=== PATIENT | female | born 1965 | race Caucasian/White ===

== ENCOUNTER → 2016-11-06 | Outpatient (CLI) | payer MEDICARE, OTHER, SELFPAY ==
[2016-11-06 16:20] LABS: CHLORIDE,CL 102 mmol/L (98-115); SODIUM,NA 140 mmol/L (136-145)
== END ==
LOC: KA.OC 15:35
PROVIDERS: ATTEND Physician Assistant Surgical
DX: R05 Cough (principal); J98.4 Other disorders of lung
CPT/HCPCS: 36415; 71020; 80048; 85025; 87804

== ENCOUNTER 2016-11-12 21:16 | Inpatient (IN) | payer MEDICARE, OTHER, SELFPAY ==
[2016-11-12] MEDS ORDERED: Albuterol/Ipratropium 3.0-0.5 MG/3 ML Neb Soln NEB ONE (21:18)
[2016-11-12] MEDS ORDERED: Albuterol/Ipratropium 3.0-0.5 MG/3 ML Neb Soln ONE (21:20)
[2016-11-12] MEDS ORDERED: Sodium Chloride 0.9% 5 ML Syringe FLUSH PRN ×2 (21:34→22:34)
[2016-11-12] MEDS ORDERED: Sodium Chloride 0.9% 1,000 ML IV ONE (21:34)
[2016-11-12] MEDS ORDERED: Acetaminophen 500 MG Tab PO ONE (21:34)
[2016-11-12] MEDS ORDERED: methylPREDNISolone Sodium Succinate 125 MG/2 ML SDV IVPUSH ONE (21:39)
--- NOTE | 2016-11-12 21:40 | EDM.PDOC ---
ED HISTORY OF PRESENT ILLNESS - General Chief Complaint: Respiratory Problem Stated Complaint: respiratory distress Time Seen by Provider: 11/12/16 21:20 Source of Information: Reports: Patient History Limitations: Reports: No limitations - History of Present Illness INITIAL COMMENTS - FREE TEXT/NARRATIVE: 51 YO WF presents to ER with 6 day history of shortness of breath, fever and productive cough. Pt states she was seen in clinic 6 days ago and started on antibiotics and nebulizer treatments Q4 hours. Pt states she hasn't felt like she's improving much and tonight became more short of breath. Fever at home as high as 102.0. Pt states she was tested for influenza in clinic and it was negative. Timing/Duration: Reports: Day(s): (6) Severity: mild Location, General: Reports: head, chest Quality: Reports: Ache Improves with: Reports: Rest Worsens with: Reports: Breathing, Movement Associated Symptoms (General): Reports: cough w sputum, fever/chills, headaches , shortness of breath. 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, NSAIDS - Related Data Allergies/ADRs: Allergies Allergy/AdvReac Type Severity Reaction Status Date / Time aspartame Allergy Hives Verified 11/12/16 21:18 Iodinated Contrast Media - Allergy Vomiting Verified 11/12/16 21:18 Oral and [Iodinated Contrast Media - IV Dye] iodine Allergy Itching Verified 11/12/16 21:18 Sulfa (Sulfonamide Allergy Hives Verified 11/12/16 21:18 Antibiotics) venom-honey bee Allergy Airway Verified 11/12/16 21:18 [bee venom (honey bee)] Tightness Home Meds: Home Meds Amitriptyline [Elavil] 50 mg PO BEDTIME 10/24/13 [History] Aspirin [Low Dose Aspirin EC] 81 mg PO DAILY 10/24/13 [History] Ibuprofen [Motrin] 800 mg PO BID PRN 10/24/13 [History] Insulin Aspart [NovoLOG] 0 units SUBCUT ASDIRECTED PRN 10/24/13 [History] Insulin Detemir [Levemir Flexpen] 34 units SUBCUT BID 10/24/13 [History] Levothyroxine [Synthroid] 88 mcg PO DAILY 02/14/14 [History] Quinapril HCl [Accupril] 10 mg PO DAILY 10/24/13 [History] glipiZIDE [Glucotrol] 10 mg PO BID 10/24/13 [History] metFORMIN HCl [Metformin HCl] 1,000 mg PO BID 10/24/13 [History] Albuterol [Ventolin HFA] 1 - 2 puff INH Q4H PRN 10/19/14 [History] Furosemide [Lasix] 20 mg PO DAILY PRN 10/19/14 [History] Cholecalciferol (Vitamin D3) [Vitamin D3] 2,000 unit PO DAILY 04/30/15 [History] Magnesium 400 mg PO 1200,2100 04/30/15 [History] Pantoprazole [Protonix] 40 mg PO ACBREAKFAST 04/30/15 [History] SitaGLIPtin [Januvia] 100 mg PO DAILY 04/30/15 [History] Nadolol [Corgard] 20 mg PO DAILY 03/21/16 [History] Nitroglycerin 1 tab SL ASDIRECTED PRN 03/21/16 [History] traMADol [Ultram] 50 mg PO Q6HR PRN 03/21/16 [History] Past Medical History Other HEENT History: Ear infections Cardiovascular History: Reports: Hypertension, SOB on exertion, Other (see below ) Other Cardiovascular History: intermittent chest pain x 3 days Respiratory History: Reports: Bronchitis, recurrent, Other (see below) Other Respiratory History: smoker x 36 years, 0.5 ppd Gastrointestinal History: Reports: Cholelithiasis, Cirrhosis, GERD Genitourinary History: Reports: Pyelonephritis, UTI, recurrent 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: Musculoskeletal History: Reports: Arthritis Psychiatric History: Reports: Depression, Panic attack Endocrine/Metabolic History: Reports: Diabetes, type II, Hypothyroidism Other Endocrine/Metabolic History: hypothyroidism Other Hematologic History: elevated liver values Other Oncologic History: precancerous cells in uterus, back - Infectious Disease History Infectious Disease History: Reports: Hepatitis C - Past Surgical History Cardiovascular Surgical History: Reports: Other (see below) Other Cardiovascular Surgeries/Procedures: ECHO in November 2015; EF 65% GI Surgical History: Reports: Cholecystectomy, Colonoscopy Female Surgical History: Reports: Hysterectomy Neurological Surgical History: Reports: Laminectomy Other Musculoskeletal Surgeries/Procedures:: wrist injury Social & Family History - Tobacco Use Smoking Status *Q: Current Every Day Smoker Years of Tobacco use: 34 Packs/Tins Daily: 0.5 Used Tobacco, but Quit: No Second Hand Smoke Exposure: Yes - Alcohol Use Days Per Week of Alcohol Use: 0 - Recreational Drug Use Recreational Drug Use: Yes - Living Situation & Occupation Living situation: Reports: with significant other Occupation: disabled ED ROS GENERAL - Review of Systems Review Of Systems: ROS reveals no pertinent complaints other than HPI. Constitutional: Reports: fever, chills HEENT: Reports: No symptoms Respiratory: Reports: shortness of breath, wheezing, cough, sputum Cardiovascular: Reports: No symptoms Endocrine: Reports: no symptoms GI/Abdominal: Reports: No symptoms : Reports: no symptoms Musculoskeletal: Reports: no symptoms Skin: Reports: no symptoms Neurological: Reports: no symptoms Psychiatric: Reports: No symptoms Hematologic/Lymphatic: Reports: no symptoms Immunologic: Reports: no symptoms ED EXAM, GENERAL - Physical Exam Exam: See Below Exam Limited By: No limitations General Appearance: alert, WD/WN, no apparent distress Nose: normal inspection, normal mucosa, no blood Throat/Mouth: Normal inspection, Normal lips, Normal teeth, Normal gums, Normal oropharynx, Normal voice, No airway compromise Head: atraumatic, normocephalic Neck: normal inspection, supple, non-tender, full range of motion Respiratory/Chest: decreased breath sounds, wheezing, accessory muscle use, prolonged expiration Cardiovascular: normal peripheral pulses, regular rate, rhythm, no edema, no gallop, no JVD, no murmur, no rub GI/Abdominal: normal bowel sounds, soft, non tender, no organomegaly, no distention, no abnormal bruit, no mass Back Exam: normal inspection, full range of motion, NT Extremities: normal inspection, normal range of motion, non-tender, normal capillary refill, no pedal edema Neurological: alert, oriented, CN II-XII intact, normal cognition, normal gait, normal reflexes, no motor/sensory deficits Psychiatric: normal affect, normal mood Skin Exam: Warm, Dry, Intact, Normal color, No rash Lymphatic: no adenopathy EKG INTERPRETATION EKG Date: 11/12/16 Time: 22:06 Rhythm: NSR Rate (beats/min): 90 [place]awling: normal P-wave: present QRS: normal ST-T: normal QT: normal Course - Vital Signs Last Recorded V/S: Last Vital Signs Temp 37.9 C 11/12/16 21:42 Pulse 93 11/12/16 21:21 Resp 26 H 11/12/16 22:29 BP 133/58 L 11/12/16 22:29 Pulse Ox 95 11/12/16 22:29 - Orders/Labs/Meds Orders: Active Orders 24 hr Category Date Time Status Patient Status Manage Transfer [TRANSFER] Routine ADT 11/12/16 22:33 Ordered Patient Status [ADT] Routine ADT 11/12/16 22:34 Ordered Bedrest Bathroom Privileges [RC] ASDIRECTED Care 11/12/16 22:34 Active Cardiac Monitoring [RC] . DIRECTED Care 11/12/16 22:33 Active Cardiac Monitoring [RC] CONTINUOUS Care 11/12/16 22:35 Active EKG Documentation Completion [RC] ASDIRECTED Care 11/12/16 21:34 Active Oxygen Therapy [RC] PRN Care 11/12/16 22:34 Active Peripheral IV Care [RC] . DIRECTED Care 11/12/16 21:34 Active Peripheral IV Care [RC] . DIRECTED Care 11/12/16 22:36 Active Pulse Oximetry [RC] CONTINUOUS Care 11/12/16 22:35 Active RT Aerosol Therapy [RC] ASDIRECTED Care 11/12/16 21:18 Active RT Aerosol Therapy [RC] ASDIRECTED Care 11/12/16 22:36 Active VTE/DVT Education [RC] PER UNIT ROUTINE Care 11/12/16 22:34 Active Vital Signs [RC] Q4H Care 11/12/16 22:34 Active 2 Gram Sodium Diet [DIET] Diet 11/13/16 Breakfast Active Chest 2V [CR] Stat Exams 11/12/16 21:18 Taken BASIC METABOLIC PANEL,BMP [CHEM] AM Lab 11/13/16 05:11 Ordered CBC WITH AUTO DIFF [HEME] AM Lab 11/13/16 05:11 Ordered CULTURE BLOOD [BC] Stat Lab 11/12/16 21:55 Received CULTURE BLOOD [BC] Stat Lab 11/12/16 22:20 Received CULTURE SPUTUM + SMEAR [RM] Stat Lab 11/12/16 22:34 Uncollected IRON PANEL IRON/TRANSFERR/FERR [REF] Stat Lab 11/12/16 22:40 Ordered TYPE AND SCREEN [BBK] Stat Lab 11/12/16 22:40 Ordered UA W/MICROSCOPIC [URIN] AM Lab 11/13/16 05:11 Uncollected Acetaminophen [Tylenol] Med 11/12/16 22:34 Active 650 mg PO Q4H PRN Albuterol/Ipratropium [DuoNeb 3.0-0.5 MG/3 ML] Med 11/12/16 22:45 Active 3 ml NEB Q4H Ibuprofen [Motrin] Med 11/12/16 22:34 Active 600 mg PO Q6H PRN Sodium Chloride 0.9% [Syrex Flush] Med 11/12/16 21:34 Active 5 ml FLUSH Q8HR PRN Sodium Chloride 0.9% [Syrex Flush] Med 11/12/16 22:34 Active 5 ml FLUSH Q8HR PRN methylPREDNISolone Sod Succ [Solu-MEDROL] Med 11/12/16 22:45 Ordered 80 mg IVPUSH Q8H Blood Culture x2 Reflex Set [OM.PC] Stat Oth 11/12/16 21:34 Ordered Peripheral IV Insertion Adult [OM.PC] Routine Oth 11/12/16 21:34 Ordered Peripheral IV Insertion Adult [OM.PC] Routine Oth 11/12/16 22:34 Ordered Resuscitation Status Routine Resus Stat 11/12/16 22:34 Ordered EKG 12 Lead [EK] Routine Ther 11/12/16 21:34 Ordered Medication Orders Acetaminophen (Tylenol) 650 mg PO Q4H PRN PRN Reason: Pain (Mild 1-3)/fever Albuterol/Ipratropium (Duoneb 3.0-0.5 Mg/3 Ml) 3 ml NEB Q4H RG Ibuprofen (Motrin) 600 mg PO Q6H PRN PRN Reason: Pain (mild 1-3) Methylprednisolone Sodium Succinate (Solu-Medrol) 80 mg IVPUSH Q8H RG Sodium Chloride (Syrex Flush) 5 ml FLUSH Q8HR PRN PRN Reason: Keep Vein Open Sodium Chloride (Syrex Flush) 5 ml FLUSH Q8HR PRN PRN Reason: Keep Vein Open Labs: Laboratory Tests 11/12/16 11/12/16 Range/Units 21:55 21:55 WBC 12.5 H (5.0-10.0) 10^3/uL RBC 4.02 (3.80-5.50) 10^6/uL Hgb 8.3 L (12.0-16.0) g/dL Hct 26.5 L (37.0-47.0) % MCV 66.1 L (82.0-92.0) fL MCH 20.7 L (27.0-31.0) pg MCHC 31.3 L (32.0-36.0) g/dL RDW 18.4 H (11.5-14.5) % Plt Count 265 (150-300) 10^3/uL MPV 8.2 (7.4-10.4) fL Add Manual Diff Yes Neutrophils % (Manual) 59 (50-70) % Band Neutrophils % 3 L (4-12) % Lymphocytes % (Manual) 26 (20-40) % Monocytes % (Manual) 6 (2-8) % Eosinophils % (Manual) 6 H (1-3) % Basophils % (Manual) 0 (0-1) % Sodium 136 (136-145) mmol/L Potassium 4.3 (3.3-5.3) mmol/L Chloride 100 (98-115) mmol/L Carbon Dioxide 27.2 (21.0-32.0) mmol/L BUN 11 (6-25) mg/dL Creatinine 0.87 (0.51-1.17) mg/dL Est Cr Clr Drug Dosing TNP Estimated GFR (MDRD) > 60 mL/min Glucose 215 H (70-110) mg/dL Calcium 8.8 (8.7-10.3) mg/dL Total Bilirubin 0.4 (0.2-1.0) mg/dL AST 31 (15-37) U/L ALT 26 (12-78) U/L Alkaline Phosphatase 118 H (46-116) IU/L Creatine Kinase 107 (26-276) U/L CK-MB (CK-2) < 0.50 (0.00-4.30) ng/mL Troponin I < 0.04 (0.00-0.070) ng/mL Total Protein 7.4 (6.4-8.2) g/dL Albumin 3.11 (3.00-4.80) g/dL Meds: Medications Generic Name Dose Route Start Last Admin Trade Name Freq PRN Reason Stop Dose Admin Acetaminophen 650 mg 11/12/16 22:34 Tylenol PO Q4H PRN Pain (Mild 1-3)/fever Albuterol/Ipratropium 3 ml 11/12/16 22:45 Duoneb 3.0-0.5 Mg/3 Ml NEB Q4H RG Ibuprofen 600 mg 11/12/16 22:34 Motrin PO Q6H PRN Pain (mild 1-3) Methylprednisolone Sodium Succinate 80 mg 11/12/16 22:45 Solu-Medrol IVPUSH Q8H RG Sodium Chloride 5 ml 11/12/16 21:34 Syrex Flush FLUSH Q8HR PRN Keep Vein Open Sodium Chloride 5 ml 11/12/16 22:34 Syrex Flush FLUSH Q8HR PRN Keep Vein Open Discontinued Medications Generic Name Dose Route Start Last Admin Trade Name Freq PRN Reason Stop Dose Admin Acetaminophen 1,000 mg 11/12/16 21:34 11/12/16 21:42 Tylenol Extra Strength PO 11/12/16 21:35 1,000 mg ONETIME ONE Administration Albuterol/Ipratropium 3 ml 11/12/16 21:18 11/12/16 21:39 Duoneb 3.0-0.5 Mg/3 Ml NEB 11/12/16 21:19 3 ml ONETIME ONE Administration Albuterol/Ipratropium Confirm 11/12/16 21:20 11/12/16 21:39 Duoneb 3.0-0.5 Mg/3 Ml Administered 11/12/16 21:21 Not Given Dose 3 ml .ROUTE .STK-MED ONE Sodium Chloride 1,000 mls @ 999 mls/hr 11/12/16 21:34 11/12/16 21:42 Normal Saline IV 11/12/16 22:34 999 mls/hr .BOLUS ONE Administration Methylprednisolone Sodium Succinate 125 mg 11/12/16 21:39 11/12/16 21:43 Solu-Medrol IVPUSH 11/12/16 21:40 125 mg ONETIME ONE Administration Methylprednisolone Sodium Succinate Confirm 11/12/16 21:41 Solu-Medrol Administered 11/12/16 21:42 Dose 125 mg .ROUTE .STK-MED ONE - Radiology Interpretation Free Text/Narrative:: CXR- NAD CT Results Date: 11/12/16 CT Results Time: 22:31 Departure - Departure Time of Disposition: 22:44 Disposition: DC/Tfer to Medicaid Nur Fac 64 Condition: good Clinical Impression: Hypoxemia, COPD exacerbation Anemia Qualifiers: Anemia type: unspecified type Qualified Code(s): D64.9 - Anemia, unspecified Forms: ED Department Discharge - My Orders Last 24 Hours: My Active Orders 11/12/16 21:18 RT Aerosol Therapy [RC] ASDIRECTED Chest 2V [CR] Stat 11/12/16 21:34 EKG Documentation Completion [RC] ASDIRECTED Peripheral IV Care [RC] . DIRECTED Sodium Chloride 0.9% [Syrex Flush] 5 ml FLUSH Q8HR PRN Blood Culture x2 Reflex Set [OM.PC] Stat Peripheral IV Insertion Adult [OM.PC] Routine EKG 12 Lead [EK] Routine 11/12/16 21:55 CULTURE BLOOD [BC] Stat 11/12/16 22:20 CULTURE BLOOD [BC] Stat 11/12/16 22:33 Patient Status Manage Transfer [TRANSFER] Routine Cardiac Monitoring [RC] . DIRECTED 11/12/16 22:34 Patient Status [ADT] Routine Bedrest Bathroom Privileges [RC] ASDIRECTED Oxygen Therapy [RC] PRN VTE/DVT Education [RC] PER UNIT ROUTINE Vital Signs [RC] Q4H CULTURE SPUTUM + SMEAR [RM] Stat Acetaminophen [Tylenol] 650 mg PO Q4H PRN Ibuprofen [Motrin] 600 mg PO Q6H PRN Sodium Chloride 0.9% [Syrex Flush] 5 ml FLUSH Q8HR PRN Peripheral IV Insertion Adult [OM.PC] Routine Resuscitation Status Routine 11/12/16 22:35 Cardiac Monitoring [RC] CONTINUOUS Pulse Oximetry [RC] CONTINUOUS 11/12/16 22:36 Peripheral IV Care [RC] . DIRECTED RT Aerosol Therapy [RC] ASDIRECTED 11/12/16 22:40 IRON PANEL IRON/TRANSFERR/FERR [REF] Stat TYPE AND SCREEN [BBK] Stat 11/12/16 22:45 Albuterol/Ipratropium [DuoNeb 3.0-0.5 MG/3 ML] 3 ml NEB Q4H methylPREDNISolone Sod Succ [Solu-MEDROL] 80 mg IVPUSH Q8H 11/13/16 05:11 BASIC METABOLIC PANEL,BMP [CHEM] AM CBC WITH AUTO DIFF [HEME] AM UA W/MICROSCOPIC [URIN] AM 11/13/16 Breakfast 2 Gram Sodium Diet [DIET] - Assessment/Plan Last 24 Hours: My Active Orders 11/12/16 21:18 RT Aerosol Therapy [RC] ASDIRECTED Chest 2V [CR] Stat 11/12/16 21:34 EKG Documentation Completion [RC] ASDIRECTED Peripheral IV Care [RC] . DIRECTED Sodium Chloride 0.9% [Syrex Flush] 5 ml FLUSH Q8HR PRN Blood Culture x2 Reflex Set [OM.PC] Stat Peripheral IV Insertion Adult [OM.PC] Routine EKG 12 Lead [EK] Routine 11/12/16 21:55 CULTURE BLOOD [BC] Stat 11/12/16 22:20 CULTURE BLOOD [BC] Stat 11/12/16 22:33 Patient Status Manage Transfer [TRANSFER] Routine Cardiac Monitoring [RC] . DIRECTED 11/12/16 22:34 Patient Status [ADT] Routine Bedrest Bathroom Privileges [RC] ASDIRECTED Oxygen Therapy [RC] PRN VTE/DVT Education [RC] PER UNIT ROUTINE Vital Signs [RC] Q4H CULTURE SPUTUM + SMEAR [RM] Stat Acetaminophen [Tylenol] 650 mg PO Q4H PRN Ibuprofen [Motrin] 600 mg PO Q6H PRN Sodium Chloride 0.9% [Syrex Flush] 5 ml FLUSH Q8HR PRN Peripheral IV Insertion Adult [OM.PC] Routine Resuscitation Status Routine 11/12/16 22:35 Cardiac Monitoring [RC] CONTINUOUS Pulse Oximetry [RC] CONTINUOUS 11/12/16 22:36 Peripheral IV Care [RC] . DIRECTED RT Aerosol Therapy [RC] ASDIRECTED 11/12/16 22:40 IRON PANEL IRON/TRANSFERR/FERR [REF] Stat TYPE AND SCREEN [BBK] Stat 11/12/16 22:45 Albuterol/Ipratropium [DuoNeb 3.0-0.5 MG/3 ML] 3 ml NEB Q4H methylPREDNISolone Sod Succ [Solu-MEDROL] 80 mg IVPUSH Q8H 11/13/16 05:11 BASIC METABOLIC PANEL,BMP [CHEM] AM CBC WITH AUTO DIFF [HEME] AM UA W/MICROSCOPIC [URIN] AM 11/13/16 Breakfast 2 Gram Sodium Diet [DIET] Assessment:: 1. hypoxemia 2. COPD exacerbation- r/o pneumonia 3. anemia- chronic disease vs iron deficiency 4. fever Plan: 1. Admit to hospital for further management 2. oxygen/duoneb treatments 3. rocephin/zithromax 4. iron studies and serial H/H 5. fever- motrin/tylenol
[2016-11-12] MEDS ORDERED: methylPREDNISolone Sodium Succinate 125 MG/2 ML SDV ONE (21:41)
[2016-11-12] MEDS ORDERED: Ibuprofen 600 MG Tab PO PRN (22:34)
[2016-11-12 22:36] LABS: CHLORIDE,CL 100 mmol/L (98-115); SODIUM,NA 136 mmol/L (136-145)
[2016-11-12] MEDS ORDERED: Nitroglycerin 0.4 MG Tab.SL SL PRN (22:57)
[2016-11-12] MEDS ORDERED: INSULIN ASPART 1 UNIT SUBCUT PRN (22:57)
[2016-11-13] MEDS: cefTRIAXone 1 GM Vial IVPUSH SCH ×2 (01:32→22:44)
[2016-11-13] MEDS: Azithromycin 500 MG in Sodium Chloride 0.9% 250 ML IV SCH ×2 (01:41→22:55)
[2016-11-13] MEDS: methylPREDNISolone Sodium Succinate 125 MG/2 ML SDV IVPUSH SCH ×4 (01:53→21:56)
[2016-11-13] MEDS: Albuterol/Ipratropium 3.0-0.5 MG/3 ML Neb Soln NEB SCH ×6 (01:56→23:04)
[2016-11-13] MEDS: Insulin Detemir 100 Units/ML 3 ML Pen SUBCUT SCH ×3 (03:02→21:41)
[2016-11-13 08:02] LABS: CHLORIDE,CL 102 mmol/L (98-115); SODIUM,NA 136 mmol/L (136-145)
[2016-11-13] MEDS ORDERED: Insulin Aspart 100 Units/ML 3 ML Pen ONE (08:36)
[2016-11-13] MEDS: Insulin Aspart 100 Units/ML 3 ML Pen SUBCUT SCH ×4 (08:46→22:04)
[2016-11-13] MEDS ORDERED: Atropine 0.1 MG/ML 10 ML Syringe IVPUSH PRN (08:49)
[2016-11-13] MEDS ORDERED: Nitroglycerin 0.4 MG Tab.SL SL PRN (08:49)
[2016-11-13] MEDS ORDERED: Lidocaine 2% 100 MG/5 ML Syringe IVPUSH PRN (08:49)
[2016-11-13] MEDS ORDERED: EPINEPHrine 1:10,000 1 MG/10 ML Syringe IVPUSH PRN (08:49)
[2016-11-13] MEDS ORDERED: Non-Formulary Medication 1 Each (Sitagliptin [Januvia] 100 MG) PO SCH (09:00)
[2016-11-13] MEDS ORDERED: Aspirin 81 MG Tab.EC PO SCH (09:00)
[2016-11-13] MEDS ORDERED: Levothyroxine 100 MCG Tab PO SCH (09:00)
[2016-11-13] MEDS ORDERED: Non-Formulary Medication 1 Each (Nadolol [Corgard] 20 MG) PO SCH (09:00)
[2016-11-13] MEDS ORDERED: Non-Formulary Medication 1 Each (Metformin Hcl [Metformin Hcl] 1,000 MG) PO SCH (09:00)
[2016-11-13] MEDS ORDERED: GLIPIZIDE 10 MG PO SCH (09:00)
[2016-11-13] MEDS: glipiZIDE 5 MG Tab PO SCH ×2 (09:06→17:50)
[2016-11-13] MEDS: metFORMIN 500 MG Tab PO SCH ×2 (09:08→17:50)
[2016-11-13] MEDS: Propranolol 20 MG Tab PO SCH (09:10)
--- NOTE | 2016-11-13 10:08 | PCM.PN ---
- General Info Date of Service: 11/13/16 Admission Dx/Problem (Free Text): 51 yo wf admitted to hospital for COPD exacerbation, hypoxemia, who reports feeling much better this am. Pt states her breath is better but is still requiring supplemental O2. Pt without complaints Subjective Update: Pt reports feeling better this am. Pt denies any complaints. Functional Status: Reports: pain controlled, tolerating diet, ambulating, urinating, incentive spirometry Pain Score: 0 - Review of Systems General: Reports: no symptoms HEENT: Reports: no symptoms Pulmonary: Reports: shortness of breath, wheezing Cardiovascular: Reports: no symptoms Gastrointestinal: Reports: No symptoms Genitourinary: Reports: no symptoms Musculoskeletal: Reports: no symptoms Skin: Reports: no symptoms Neurological: Reports: no symptoms Psychiatric: Reports: no symptoms - Patient Data Vitals - most recent: Last Vital Signs Temp 35.4 C 11/13/16 06:47 Pulse 73 11/13/16 09:10 Resp 20 11/13/16 06:47 BP 99/64 11/13/16 09:10 Pulse Ox 94 L 11/13/16 06:47 Weight - most recent: 108.953 kg I&O - last 24 hours: Intake & Output 11/12/16 11/13/16 11/13/16 22:59 06:59 14:59 Intake Total 2120 Output Total 800 Balance 1320 Lab Results last 24 hrs: Laboratory Results - last 24 hr 11/13/16 11/13/16 11/13/16 Range/Units 06:36 07:30 07:30 WBC 9.3 (5.0-10.0) 10^3/uL RBC 4.05 (3.80-5.50) 10^6/uL Hgb 8.3 L (12.0-16.0) g/dL Hct 26.7 L (37.0-47.0) % MCV 66.0 L (82.0-92.0) fL MCH 20.6 L (27.0-31.0) pg MCHC 31.2 L (32.0-36.0) g/dL RDW 18.6 H (11.5-14.5) % Plt Count 249 (150-300) 10^3/uL MPV 8.1 (7.4-10.4) fL Neut % (Auto) 86.5 H (50.0-70.0) % Lymph % (Auto) 11.8 L (20.0-40.0) % [place] % (Auto) 1.2 L (2.0-8.0) % Eos % (Auto) 0.2 L (1.0-3.0) % Baso % (Auto) 0.3 (0.0-1.0) % Neut # 8.1 H (2.5-7.0) 10^3/uL Lymph # 1.1 (1.0-4.0) 10^3/uL [place] # 0.1 (0.1-0.8) 10^3/uL Eos # 0.0 L (0.1-0.3) 10^3/uL Baso # 0.0 (0.0-0.1) 10^3/uL Sodium 136 (136-145) mmol/L Potassium 4.6 (3.3-5.3) mmol/L Chloride 102 (98-115) mmol/L Carbon Dioxide 23.1 (21.0-32.0) mmol/L BUN 13 (6-25) mg/dL Creatinine 0.76 (0.51-1.17) mg/dL Est Cr Clr Drug Dosing 71.63 mL/min Estimated GFR (MDRD) > 60 mL/min Glucose 403 H (70-110) mg/dL POC Glucose 333 H (74-106) mg/dl Calcium 8.6 L (8.7-10.3) mg/dL Specimen Type Urine Color (YELLOW) Urine Appearance (CLEAR) Urine pH (5.0-9.0) Ur Specific [place] (1.005-1.030) Urine Protein (NEGATIVE) mg/dL Urine Glucose (UA) (NEGATIVE) mg/dL Urine Ketones (NEGATIVE) mg/dL Urine Occult Blood (NEGATIVE) Urine Nitrite (NEGATIVE) Urine Bilirubin (NEGATIVE) Urine Urobilinogen (0.2-1.0) E.U./dL Ur Leukocyte Esterase (NEGATIVE) Urine RBC /HPF Urine WBC /HPF Ur Epithelial Cells /LPF Urine Bacteria (NONE TO FEW) /HPF 11/13/16 Range/Units 08:35 WBC (5.0-10.0) 10^3/uL RBC (3.80-5.50) 10^6/uL Hgb (12.0-16.0) g/dL Hct (37.0-47.0) % MCV (82.0-92.0) fL MCH (27.0-31.0) pg MCHC (32.0-36.0) g/dL RDW (11.5-14.5) % Plt Count (150-300) 10^3/uL MPV (7.4-10.4) fL Neut % (Auto) (50.0-70.0) % Lymph % (Auto) (20.0-40.0) % [place] % (Auto) (2.0-8.0) % Eos % (Auto) (1.0-3.0) % Baso % (Auto) (0.0-1.0) % Neut # (2.5-7.0) 10^3/uL Lymph # (1.0-4.0) 10^3/uL [place] # (0.1-0.8) 10^3/uL Eos # (0.1-0.3) 10^3/uL Baso # (0.0-0.1) 10^3/uL Sodium (136-145) mmol/L Potassium (3.3-5.3) mmol/L Chloride (98-115) mmol/L Carbon Dioxide (21.0-32.0) mmol/L BUN (6-25) mg/dL Creatinine (0.51-1.17) mg/dL Est Cr Clr Drug Dosing mL/min Estimated GFR (MDRD) mL/min Glucose (70-110) mg/dL POC Glucose (74-106) mg/dl Calcium (8.7-10.3) mg/dL Specimen Type Urincc Urine Color Yellow (YELLOW) Urine Appearance Clear (CLEAR) Urine pH 6.0 (5.0-9.0) Ur Specific [place] <= 1.005 (1.005-1.030) Urine Protein Negative (NEGATIVE) mg/dL Urine Glucose (UA) >=1000 H (NEGATIVE) mg/dL Urine Ketones Negative (NEGATIVE) mg/dL Urine Occult Blood Negative (NEGATIVE) Urine Nitrite Negative (NEGATIVE) Urine Bilirubin Negative (NEGATIVE) Urine Urobilinogen 0.2 (0.2-1.0) E.U./dL Ur Leukocyte Esterase Negative (NEGATIVE) Urine RBC Not seen /HPF Urine WBC Not seen /HPF Ur Epithelial Cells Not seen /LPF Urine Bacteria Not seen (NONE TO FEW) /HPF Med Orders - Current: Current Medications Acetaminophen (Tylenol) 650 mg PO Q4H PRN PRN Reason: Pain (Mild 1-3)/fever Albuterol/Ipratropium (Duoneb 3.0-0.5 Mg/3 Ml) 3 ml NEB Q6HRRT [facility] Aspirin (Halfprin) 81 mg PO DAILY [facility] Last Admin: 11/13/16 08:52 Dose: 81 mg Atropine Sulfate (Atropine 0.1 Mg/Ml) 0 mg IVPUSH ASDIRECTED PRN PRN Reason: Heart Ceftriaxone Sodium (Rocephin) 1 gm IVPUSH Q24H [facility] Last Admin: 11/13/16 01:32 Dose: 1 gm Epinephrine HCl (Epinephrine 1:10,000) 1 mg IVPUSH ASDIRECTED PRN PRN Reason: Heart Glipizide (Glucotrol) 10 mg PO BIDMEALS [facility] Last Admin: 11/13/16 09:06 Dose: 10 mg Azithromycin 500 mg/ Sodium (Chloride) 250 mls @ 250 mls/hr IV Q24H [facility] Last Admin: 11/13/16 01:41 Dose: 250 mls/hr Ibuprofen (Motrin) 600 mg PO Q6H PRN PRN Reason: Pain (mild 1-3) Insulin Aspart (Novolog) 0 unit SUBCUT QIDACANDBED [facility] PRN Reason: Protocol Last Admin: 11/13/16 08:46 Dose: 12 units Insulin Detemir (Levemir) 34 unit SUBCUT BID [facility] Last Admin: 11/13/16 08:49 Dose: 34 units Levothyroxine Sodium (Synthroid) 88 mcg PO ACBREAKFAST [facility] Lidocaine HCl (Xylocaine 2%) 0 mg IVPUSH ASDIRECTED PRN PRN Reason: Heart Metformin HCl (Glucophage) 1,000 mg PO BIDMEALS [facility] Last Admin: 11/13/16 09:08 Dose: 1,000 mg Methylprednisolone Sodium Succinate (Solu-Medrol) 80 mg IVPUSH Q8H [facility] Last Admin: 11/13/16 06:21 Dose: 80 mg Nitroglycerin (Nitrostat) 0.4 mg SL ASDIRECTED PRN PRN Reason: chest tightness Nitroglycerin (Nitrostat) 0.4 mg SL ASDIRECTED PRN PRN Reason: Heart Propranolol HCl (Inderal) 20 mg PO DAILY [facility] Last Admin: 11/13/16 09:10 Dose: 20 mg Sitagliptin Phosphate (Januvia) 100 mg PO WITHBREAKFAST [facility] Last Admin: 11/13/16 09:07 Dose: 100 mg Sodium Chloride (Syrex Flush) 5 ml FLUSH Q8HR PRN PRN Reason: Keep Vein Open Discontinued Medications Acetaminophen (Tylenol Extra Strength) 1,000 mg PO ONETIME ONE Stop: 11/12/16 21:35 Last Admin: 11/12/16 21:42 Dose: 1,000 mg Albuterol/Ipratropium (Duoneb 3.0-0.5 Mg/3 Ml) 3 ml NEB ONETIME ONE Stop: 11/12/16 21:19 Last Admin: 11/12/16 21:39 Dose: 3 ml Albuterol/Ipratropium (Duoneb 3.0-0.5 Mg/3 Ml) Confirm Administered Dose 3 ml .ROUTE .STK-MED ONE Stop: 11/12/16 21:21 Last Admin: 11/12/16 21:39 Dose: Not Given Albuterol/Ipratropium (Duoneb 3.0-0.5 Mg/3 Ml) 3 ml NEB Q4H [facility] Last Admin: 11/13/16 06:24 Dose: 3 ml Sodium Chloride (Normal Saline) 1,000 mls @ 999 mls/hr IV .BOLUS ONE Stop: 11/12/16 22:34 Last Admin: 11/12/16 21:42 Dose: 999 mls/hr Insulin Aspart (Novolog) Confirm Administered Dose 300 unit .ROUTE .STK-MED ONE Stop: 11/13/16 08:37 Levothyroxine Sodium (Synthroid) 88 mcg PO DAILY [facility] Methylprednisolone Sodium Succinate (Solu-Medrol) 125 mg IVPUSH ONETIME ONE Stop: 11/12/16 21:40 Last Admin: 11/12/16 21:43 Dose: 125 mg Methylprednisolone Sodium Succinate (Solu-Medrol) Confirm Administered Dose 125 mg .ROUTE .STK-MED ONE Stop: 11/12/16 21:42 Last Admin: 11/13/16 01:57 Dose: Not Given Non-Formulary Medication (Insulin Aspart) 1 units SUBCUT ASDIRECTED PRN PRN Reason: high blood sugar Non-Formulary Medication (Nadolol [Corgard]) 20 mg PO DAILY [facility] Non-Formulary Medication (Sitagliptin [Januvia]) 100 mg PO DAILY [facility] Non-Formulary Medication (Glipizide [Glucotrol]) 10 mg PO BID [facility] Non-Formulary Medication (Metformin Hcl [Metformin Hcl]) 1,000 mg PO BID [facility] Sodium Chloride (Syrex Flush) 5 ml FLUSH Q8HR PRN PRN Reason: Keep Vein Open - Exam Quality Assessment: supplemental oxygen General: alert, oriented HEENT: Pupils equal, Pupils reactive, EOMI, Mucous membr. moist/pink Neck: supple Lungs: Wheezing Cardiovascular: regular rate, regular rhythm Abdomen: bowel sounds present, soft, no tenderness, no distension Back Exam: normal inspection, full range of motion Extremities: no edema Skin: warm, dry, intact Neurological: no new focal deficit Psy/Mental Status: alert, normal affect, normal mood - Problem List Review Problem List Initiated/Reviewed/Updated: Yes - My Orders Last 24 Hours: My Active Orders 11/13/16 07:00 Levothyroxine [Synthroid] 88 mcg PO ACBREAKFAST 11/13/16 07:44 Blood Glucose Check, Bedside [RC] QIDACANDBED 11/13/16 08:15 Insulin Aspart [NovoLOG] See Protocol SUBCUT QIDACANDBED metFORMIN [Glucophage] 1,000 mg PO BIDMEALS 11/13/16 08:49 Atropine [Atropine 0.1 MG/ML] 0 mg IVPUSH ASDIRECTED PRN EPINEPHrine [EPINEPHrine 1:10,000] 1 mg IVPUSH ASDIRECTED PRN Lidocaine 2% [Xylocaine 2%] 0 mg IVPUSH ASDIRECTED PRN Nitroglycerin [Nitrostat] 0.4 mg SL ASDIRECTED PRN 11/13/16 09:00 Propranolol [Inderal] 20 mg PO DAILY SitaGLIPtin [Januvia] 100 mg PO WITHBREAKFAST glipiZIDE [Glucotrol] 10 mg PO BIDMEALS 11/13/16 09:38 RT Aerosol Therapy [RC] ASDIRECTED 11/13/16 11:00 Albuterol/Ipratropium [DuoNeb 3.0-0.5 MG/3 ML] 3 ml NEB Q6HRRT - Assessment Assessment:: 1. COPD exacerbation 2. Hypoxemia 3. Anemia 4. Hyperglycemia - Plan Plan:: 1. continue solumedrol 80mg IV Q8, duonebs Q6, rocephin and zithromax 2. continue supplemental O2 and wean as tolerated 3. await iron studies and serial H and H 4. continue Sliding scale insulin
[2016-11-13] MEDS: Levothyroxine 88 MCG Tab PO SCH (11:00)
[2016-11-13] MEDS: Clopidogrel 75 MG Tab PO SCH (11:31)
[2016-11-13] MEDS ORDERED: Insulin Aspart 100 Units/ML 3 ML Pen SUBCUT STA (17:47)
[2016-11-13] MEDS: Acetaminophen 325 MG Tab PO PRN (20:17)
[2016-11-14] MEDS: Albuterol/Ipratropium 3.0-0.5 MG/3 ML Neb Soln NEB SCH ×4 (05:35→22:14)
[2016-11-14] MEDS: Levothyroxine 88 MCG Tab PO SCH (06:22)
[2016-11-14] MEDS: methylPREDNISolone Sodium Succinate 125 MG/2 ML SDV IVPUSH SCH (06:22)
[2016-11-14] MEDS: Insulin Aspart 100 Units/ML 3 ML Pen SUBCUT SCH ×4 (08:07→22:08)
[2016-11-14] MEDS: Insulin Detemir 100 Units/ML 3 ML Pen SUBCUT SCH ×2 (08:08→22:06)
[2016-11-14] MEDS: Propranolol 20 MG Tab PO SCH (08:08)
[2016-11-14] MEDS: Aspirin 81 MG Tab.Chew PO SCH (08:08)
[2016-11-14] MEDS: Clopidogrel 75 MG Tab PO SCH (08:08)
[2016-11-14] MEDS: glipiZIDE 5 MG Tab PO SCH ×2 (08:08→17:44)
[2016-11-14] MEDS: metFORMIN 500 MG Tab PO SCH ×2 (08:08→17:44)
[2016-11-14 08:10] LABS: CHLORIDE,CL 101 mmol/L (98-115); SODIUM,NA 140 mmol/L (136-145)
[2016-11-14] MEDS: atorvaSTATin 40 MG Tab PO SCH (11:31)
--- NOTE | 2016-11-14 12:19 | PCM.PN ---
- General Info Date of Service: 11/14/16 Subjective Update: Pt reports her shortness of breath is improving. Pt states she is feeling fine on room air. Pt denies any complaints at this time Functional Status: Reports: pain controlled, tolerating diet, ambulating, urinating, incentive spirometry Pain Score: 2 - Review of Systems General: Reports: no symptoms HEENT: Reports: no symptoms Pulmonary: Reports: shortness of breath Cardiovascular: Reports: no symptoms Gastrointestinal: Reports: No symptoms Genitourinary: Reports: no symptoms Musculoskeletal: Reports: no symptoms Skin: Reports: no symptoms Neurological: Reports: no symptoms Psychiatric: Reports: no symptoms - Patient Data Vitals - most recent: Last Vital Signs Temp 36.5 C 11/14/16 11:00 Pulse 80 11/14/16 11:00 Resp 24 H 11/14/16 11:00 BP 107/63 11/14/16 11:00 Pulse Ox 93 L 11/14/16 11:35 Weight - most recent: 108.953 kg I&O - last 24 hours: Intake & Output 11/13/16 11/14/16 11/14/16 22:59 06:59 14:59 Intake Total 1480 240 Output Total 600 2250 Balance 880 -2010 Lab Results last 24 hrs: Laboratory Results - last 24 hr 11/13/16 11/13/16 11/14/16 Range/Units 17:39 21:34 06:18 WBC (5.0-10.0) 10^3/uL RBC (3.80-5.50) 10^6/uL Hgb (12.0-16.0) g/dL Hct (37.0-47.0) % MCV (82.0-92.0) fL MCH (27.0-31.0) pg MCHC (32.0-36.0) g/dL RDW (11.5-14.5) % Plt Count (150-300) 10^3/uL MPV (7.4-10.4) fL Neut % (Auto) (50.0-70.0) % Lymph % (Auto) (20.0-40.0) % [place] % (Auto) (2.0-8.0) % Eos % (Auto) (1.0-3.0) % Baso % (Auto) (0.0-1.0) % Neut # (2.5-7.0) 10^3/uL Lymph # (1.0-4.0) 10^3/uL [place] # (0.1-0.8) 10^3/uL Eos # (0.1-0.3) 10^3/uL Baso # (0.0-0.1) 10^3/uL Sodium (136-145) mmol/L Potassium (3.3-5.3) mmol/L Chloride (98-115) mmol/L Carbon Dioxide (21.0-32.0) mmol/L BUN (6-25) mg/dL Creatinine (0.51-1.17) mg/dL Est Cr Clr Drug Dosing mL/min Estimated GFR (MDRD) mL/min Glucose (70-110) mg/dL POC Glucose 359 H 434 H 328 H (74-106) mg/dl Calcium (8.7-10.3) mg/dL 11/14/16 11/14/16 11/14/16 Range/Units 07:35 07:35 11:29 WBC 22.4 H (5.0-10.0) 10^3/uL RBC 3.94 (3.80-5.50) 10^6/uL Hgb 8.1 L (12.0-16.0) g/dL Hct 25.9 L (37.0-47.0) % MCV 65.7 L (82.0-92.0) fL MCH 20.5 L (27.0-31.0) pg MCHC 31.2 L (32.0-36.0) g/dL RDW 19.3 H (11.5-14.5) % Plt Count 280 (150-300) 10^3/uL MPV 8.4 (7.4-10.4) fL Neut % (Auto) 91.5 H (50.0-70.0) % Lymph % (Auto) 5.5 L (20.0-40.0) % [place] % (Auto) 2.8 (2.0-8.0) % Eos % (Auto) 0.1 L (1.0-3.0) % Baso % (Auto) 0.1 (0.0-1.0) % Neut # 20.6 H (2.5-7.0) 10^3/uL Lymph # 1.2 (1.0-4.0) 10^3/uL [place] # 0.6 (0.1-0.8) 10^3/uL Eos # 0.0 L (0.1-0.3) 10^3/uL Baso # 0.0 (0.0-0.1) 10^3/uL Sodium 140 (136-145) mmol/L Potassium 4.3 (3.3-5.3) mmol/L Chloride 101 (98-115) mmol/L Carbon Dioxide 25.8 (21.0-32.0) mmol/L BUN 19 (6-25) mg/dL Creatinine 0.75 (0.51-1.17) mg/dL Est Cr Clr Drug Dosing 72.58 mL/min Estimated GFR (MDRD) > 60 mL/min Glucose 355 H (70-110) mg/dL POC Glucose 396 H (74-106) mg/dl Calcium 9.1 (8.7-10.3) mg/dL Med Orders - Current: Current Medications Acetaminophen (Tylenol) 650 mg PO Q4H PRN PRN Reason: Pain (Mild 1-3)/fever Last Admin: 11/13/16 20:17 Dose: 650 mg Albuterol/Ipratropium (Duoneb 3.0-0.5 Mg/3 Ml) 3 ml NEB Q6HRRT [facility] Last Admin: 11/14/16 11:37 Dose: 3 ml Aspirin (Aspirin) 81 mg PO DAILY [facility] Last Admin: 11/14/16 08:08 Dose: 81 mg Atorvastatin Calcium (Lipitor) 40 mg PO DAILY [facility] Last Admin: 11/14/16 11:31 Dose: 40 mg Atropine Sulfate (Atropine 0.1 Mg/Ml) 0 mg IVPUSH ASDIRECTED PRN PRN Reason: Heart Ceftriaxone Sodium (Rocephin) 1 gm IVPUSH Q24H [facility] Last Admin: 11/13/16 22:44 Dose: 1 gm Clopidogrel Bisulfate (Plavix) 75 mg PO DAILY [facility] Last Admin: 11/14/16 08:08 Dose: 75 mg Epinephrine HCl (Epinephrine 1:10,000) 1 mg IVPUSH ASDIRECTED PRN PRN Reason: Heart Glipizide (Glucotrol) 10 mg PO BIDMEALS [facility] Last Admin: 11/14/16 08:08 Dose: 10 mg Azithromycin 500 mg/ Sodium (Chloride) 250 mls @ 250 mls/hr IV Q24H [facility] Last Admin: 11/13/16 22:55 Dose: 250 mls/hr Insulin Aspart (Novolog) 0 unit SUBCUT QIDACANDBED [facility] PRN Reason: Protocol Last Admin: 11/14/16 11:31 Dose: 12 units Insulin Detemir (Levemir) 34 unit SUBCUT BID [facility] Last Admin: 11/14/16 08:08 Dose: 34 units Levothyroxine Sodium (Synthroid) 88 mcg PO ACBREAKFAST [facility] Last Admin: 11/14/16 06:22 Dose: 88 mcg Lidocaine HCl (Xylocaine 2%) 0 mg IVPUSH ASDIRECTED PRN PRN Reason: Heart Metformin HCl (Glucophage) 1,000 mg PO BIDMEALS [facility] Last Admin: 11/14/16 08:08 Dose: 1,000 mg Methylprednisolone Sodium Succinate (Solu-Medrol) 80 mg IVPUSH Q8H [facility] Last Admin: 11/14/16 06:22 Dose: 80 mg Nitroglycerin (Nitrostat) 0.4 mg SL ASDIRECTED PRN PRN Reason: chest tightness Propranolol HCl (Inderal) 20 mg PO DAILY [facility] Last Admin: 11/14/16 08:08 Dose: 20 mg Sitagliptin Phosphate (Januvia) 100 mg PO WITHBREAKFAST [facility] Last Admin: 11/14/16 08:07 Dose: 100 mg Sodium Chloride (Syrex Flush) 5 ml FLUSH Q8HR PRN PRN Reason: Keep Vein Open Last Admin: 11/13/16 14:41 Dose: 5 ml Discontinued Medications Acetaminophen (Tylenol Extra Strength) 1,000 mg PO ONETIME ONE Stop: 11/12/16 21:35 Last Admin: 11/12/16 21:42 Dose: 1,000 mg Albuterol/Ipratropium (Duoneb 3.0-0.5 Mg/3 Ml) 3 ml NEB ONETIME ONE Stop: 11/12/16 21:19 Last Admin: 11/12/16 21:39 Dose: 3 ml Albuterol/Ipratropium (Duoneb 3.0-0.5 Mg/3 Ml) Confirm Administered Dose 3 ml .ROUTE .STK-MED ONE Stop: 11/12/16 21:21 Last Admin: 11/12/16 21:39 Dose: Not Given Albuterol/Ipratropium (Duoneb 3.0-0.5 Mg/3 Ml) 3 ml NEB Q4H [facility] Last Admin: 11/13/16 06:24 Dose: 3 ml Aspirin (Halfprin) 81 mg PO DAILY [facility] Last Admin: 11/13/16 08:52 Dose: 81 mg Sodium Chloride (Normal Saline) 1,000 mls @ 999 mls/hr IV .BOLUS ONE Stop: 11/12/16 22:34 Last Admin: 11/12/16 21:42 Dose: 999 mls/hr Ibuprofen (Motrin) 600 mg PO Q6H PRN PRN Reason: Pain (mild 1-3) Insulin Aspart (Novolog) Confirm Administered Dose 300 unit .ROUTE .STK-MED ONE Stop: 11/13/16 08:37 Last Admin: 11/13/16 18:07 Dose: Not Given Insulin Aspart (Novolog) 12 unit SUBCUT NOW STA Stop: 11/13/16 17:48 Last Admin: 11/13/16 17:54 Dose: Not Given Levothyroxine Sodium (Synthroid) 88 mcg PO DAILY [facility] Methylprednisolone Sodium Succinate (Solu-Medrol) 125 mg IVPUSH ONETIME ONE Stop: 11/12/16 21:40 Last Admin: 11/12/16 21:43 Dose: 125 mg Methylprednisolone Sodium Succinate (Solu-Medrol) Confirm Administered Dose 125 mg .ROUTE .STK-MED ONE Stop: 11/12/16 21:42 Last Admin: 11/13/16 01:57 Dose: Not Given Nitroglycerin (Nitrostat) 0.4 mg SL ASDIRECTED PRN PRN Reason: Heart Non-Formulary Medication (Insulin Aspart) 1 units SUBCUT ASDIRECTED PRN PRN Reason: high blood sugar Non-Formulary Medication (Nadolol [Corgard]) 20 mg PO DAILY [facility] Non-Formulary Medication (Sitagliptin [Januvia]) 100 mg PO DAILY [facility] Non-Formulary Medication (Glipizide [Glucotrol]) 10 mg PO BID [facility] Non-Formulary Medication (Metformin Hcl [Metformin Hcl]) 1,000 mg PO BID [facility] Sodium Chloride (Syrex Flush) 5 ml FLUSH Q8HR PRN PRN Reason: Keep Vein Open - Exam General: alert, oriented HEENT: Pupils equal, Pupils reactive, EOMI, Mucous membr. moist/pink Neck: supple Lungs: Clear to auscultation, Normal respiratory effort Cardiovascular: regular rate, regular rhythm Abdomen: bowel sounds present, soft, no tenderness, no distension Back Exam: normal inspection, full range of motion Extremities: no edema Skin: warm, dry, intact Neurological: no new focal deficit Psy/Mental Status: alert, normal affect, normal mood - Problem List Review Problem List Initiated/Reviewed/Updated: Yes - My Orders Last 24 Hours: My Active Orders 11/13/16 Lunch ADA Diabetic [[place] [employer] Diet] [DIET] [place] [employer] Diet [DIET] 11/14/16 08:30 Precautions [COMM] Routine 11/14/16 09:00 Aspirin 81 mg PO DAILY atorvaSTATin [Lipitor] 40 mg PO DAILY 11/14/16 09:15 QUANTIFERRON TB GOLD [REF] Stat - Assessment Assessment:: 1. COPD exacerbation 2. Hypoxemia 3. Anemia 4. Hyperglycemia 5. Leukocytosis - Plan Plan:: 1. hold solumedrol 80mg IV Q8, continue duonebs Q6, rocephin and zithromax 2. hold O2 3. await iron studies 4. continue Sliding scale insulin 5. 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
[2016-11-14] MEDS: cefTRIAXone 1 GM Vial IVPUSH SCH (22:11)
[2016-11-14] MEDS: Azithromycin 500 MG in Sodium Chloride 0.9% 250 ML IV SCH (22:14)
[2016-11-14] MEDS ORDERED: Sodium Chloride 0.9% 50 ML ONE (22:15)
[2016-11-15] MEDS: Albuterol/Ipratropium 3.0-0.5 MG/3 ML Neb Soln NEB SCH ×2 (05:59→10:51)
[2016-11-15] MEDS: Levothyroxine 88 MCG Tab PO SCH (06:31)
[2016-11-15] MEDS: Acetaminophen 325 MG Tab PO PRN (06:32)
[2016-11-15 06:49] VITALS: BP 100/68
[2016-11-15 07:35] LABS: CHLORIDE,CL 102 mmol/L (98-115); SODIUM,NA 139 mmol/L (136-145)
[2016-11-15] MEDS: metFORMIN 500 MG Tab PO SCH (08:32)
[2016-11-15] MEDS: glipiZIDE 5 MG Tab PO SCH (08:33)
[2016-11-15] MEDS: Propranolol 20 MG Tab PO SCH (08:34)
[2016-11-15] MEDS: Aspirin 81 MG Tab.Chew PO SCH (08:35)
[2016-11-15] MEDS: Clopidogrel 75 MG Tab PO SCH (08:35)
[2016-11-15] MEDS: atorvaSTATin 40 MG Tab PO SCH (08:35)
[2016-11-15] MEDS: Insulin Aspart 100 Units/ML 3 ML Pen SUBCUT SCH ×2 (08:35→12:03)
[2016-11-15] MEDS: Insulin Detemir 100 Units/ML 3 ML Pen SUBCUT SCH (08:37)
--- NOTE | 2016-11-15 10:37 | PCM.DCSUM1 ---
Discharge Summary - Hospital Course HPI Initial Comments: 51 YO WF presents to ER with 6 day history of shortness of breath, fever and productive cough. Pt states she was seen in clinic 6 days ago and started on antibiotics and nebulizer treatments Q4 hours. Pt states she hasn't felt like she's improving much and tonight became more short of breath. Fever at home as high as 102.0. Pt states she was tested for influenza in clinic and it was negative. - Discharge Data Discharge Date: 11/15/16 Discharge Disposition: Home, Self-Care 01 Condition: Good - Patient Summary/Data Operative Procedure(s) Performed: Colonoscopy Complications: none Labs Pending at D/C: AFB cultures- pending Recommended Follow-up Testing/Procedures: Pt is to follow up with Dr Desai for further evaluation. Pt instructed to follow up with inspector eyeglass for further management and discussion regarding CT chest findings. Hospital Course: Pt admitted to hospital for hypoxemia and worsening shortness of breath. Pt was started on oxygen 2L NC and was weaned off yesterday. Pt was given rocephin and zithromax x 3 days. Pt was given solumedrol 80mg IV Q8 x 2 days then stopped. Pt had a CT chest which showed groundglass infiltrates in upper lobes, right middle lobe and left lower lobe consistant with inflammatory vs infectious etiology. AFB cultures were performed and are still pending. My suspicion is this is inflammatory in etiology. blood cultures and sputum cultures were negative. Pt had elevated blood glucose and leukocytosis due to steriods which are both trending back to normal. Pt instructed to check blood sugars before each meal and bedtime and cover with sliding scale as necessary. Pt will be discharged on doxycycline 100mg PO BID x 10 days, duoneb treatments Q6 hours and PRN, pulmicort nebs BID and follow up to Dr Desai and inspector eyeglass for further evaluation and management. - Patient Instructions Diet: Diabetic Diet Driving: May Drive Today Showering/Bathing: May Shower Notify Provider of: Fever, Nausea and/or Vomiting - Discharge Plan Prescriptions/Med Rec: Albuterol/Ipratropium [DuoNeb 3.0-0.5 MG/3 ML] 3 ml NEB Q6HRRT #120 neb Budesonide [Pulmicort] 0.5 mg NEB BIDRT #60 neb Doxycycline [Vibramycin] 100 mg PO BID #20 cap Nebulizer/Compressor [Comp-Air Nebulizer System] 1 each MC DAILY #1 each Home Medications: Home Meds Ibuprofen [Motrin] 800 mg PO BID PRN 10/24/13 [History] Insulin Aspart [NovoLOG] 0 units SUBCUT ASDIRECTED PRN 10/24/13 [History] Insulin Detemir [Levemir Flexpen] 34 units SUBCUT BID 10/24/13 [History] Levothyroxine [Synthroid] 88 mcg PO ACBREAKFAST 10/24/13 [History] glipiZIDE [Glucotrol] 10 mg PO BIDMEALS 10/24/13 [History] metFORMIN HCl [Metformin HCl] 1,000 mg PO BIDMEALS 10/24/13 [History] Albuterol [Ventolin HFA] 1 - 2 puff INH Q4H PRN 10/19/14 [History] SitaGLIPtin [Januvia] 100 mg PO WITHBREAKFAST 04/30/15 [History] Nadolol [Corgard] 20 mg PO DAILY 03/21/16 [History] Nitroglycerin 1 tab SL ASDIRECTED PRN 03/21/16 [History] traMADol [Ultram] 50 mg PO Q6HR PRN 03/21/16 [History] Aspirin 81 mg PO DAILY 11/13/16 [History] Clopidogrel [Plavix] 75 mg PO DAILY 11/13/16 [History] Cyclobenzaprine [Flexeril] 10 mg PO TID PRN 11/13/16 [History] atorvaSTATin [Lipitor] 40 mg PO DAILY 11/13/16 [History] Albuterol/Ipratropium [DuoNeb 3.0-0.5 MG/3 ML] 3 ml NEB Q6HRRT #120 neb [Rx] Budesonide [Pulmicort] 0.5 mg NEB BIDRT #60 neb 11/15/16 [Rx] Doxycycline [Vibramycin] 100 mg PO BID #20 cap 11/15/16 [Rx] Nebulizer/Compressor [Comp-Air Nebulizer System] 1 each MC DAILY #1 each [Rx] Forms: ED Department Discharge Referrals: Sofie Pyle MD [Primary Care Provider] - - Discharge Summary/Plan Comment DC Time >30 min.: No Discharge Summary/Plan Comment: 1. duoneb treatments Q6 and PRN 2. pulmicort neb BID 3. doxycycline 100mg PO BID 4. follow up with Dr Desai 11/17/2016 5. Pulmonology referral per Dr Desai for abnormal CT chest 6. return to ER for worsening shortness of breath, fever greater than 101.0 - General Info Date of Service: 11/15/16 Admission Dx/Problem (Free Text: 51 yo wf admitted to hospital for COPD exacerbation, hypoxemia, who reports feeling much better this am. Pt states her breath is better but is still requiring supplemental O2. Pt without complaints Subjective Update: Pt reports her shortness of breath is improving. Pt states she is feeling fine on room air. Pt denies any complaints at this time Functional Status: Reports: pain controlled, tolerating diet, ambulating, incentive spirometry Numeric/FACES Score: 0 - Review of Systems General: Reports: no symptoms HEENT: Reports: no symptoms Pulmonary: Reports: no symptoms Cardiovascular: Reports: no symptoms Gastrointestinal: Reports: No symptoms Genitourinary: Reports: no symptoms Musculoskeletal: Reports: no symptoms Skin: Reports: no symptoms Neurological: Reports: no symptoms Psychiatric: Reports: no symptoms - Patient Data Vitals - Most Recent: Last Vital Signs Temp 36.4 C 11/15/16 06:48 Pulse 63 11/15/16 08:34 Resp 16 11/15/16 06:48 BP 100/68 11/15/16 08:34 Pulse Ox 96 11/15/16 06:48 Weight - Most Recent: 108.953 kg I&O - Last 24 hours: Intake & Output 11/14/16 11/15/16 11/15/16 22:59 06:59 14:59 Intake Total 1420 240 Output Total 1600 600 Balance -180 -360 Lab Results - Last 24 hrs: Laboratory Results - last 24 hr 11/14/16 11/14/16 11/14/16 Range/Units 11:29 17:41 22:04 WBC (5.0-10.0) 10^3/uL RBC (3.80-5.50) 10^6/uL Hgb (12.0-16.0) g/dL Hct (37.0-47.0) % MCV (82.0-92.0) fL MCH (27.0-31.0) pg MCHC (32.0-36.0) g/dL RDW (11.5-14.5) % Plt Count (150-300) 10^3/uL MPV (7.4-10.4) fL Neut % (Auto) (50.0-70.0) % Lymph % (Auto) (20.0-40.0) % Brooks % (Auto) (2.0-8.0) % Eos % (Auto) (1.0-3.0) % Baso % (Auto) (0.0-1.0) % Neut # (2.5-7.0) 10^3/uL Lymph # (1.0-4.0) 10^3/uL Brooks # (0.1-0.8) 10^3/uL Eos # (0.1-0.3) 10^3/uL Baso # (0.0-0.1) 10^3/uL Sodium (136-145) mmol/L Potassium (3.3-5.3) mmol/L Chloride (98-115) mmol/L Carbon Dioxide (21.0-32.0) mmol/L BUN (6-25) mg/dL Creatinine (0.51-1.17) mg/dL Est Cr Clr Drug Dosing mL/min Estimated GFR (MDRD) mL/min Glucose (70-110) mg/dL POC Glucose 396 H 301 H 326 H (74-106) mg/dl Calcium (8.7-10.3) mg/dL 11/15/16 11/15/16 11/15/16 Range/Units 06:29 07:05 07:05 WBC 20.9 H (5.0-10.0) 10^3/uL RBC 4.06 (3.80-5.50) 10^6/uL Hgb 8.3 L (12.0-16.0) g/dL Hct 26.5 L (37.0-47.0) % MCV 65.3 L (82.0-92.0) fL MCH 20.4 L (27.0-31.0) pg MCHC 31.2 L (32.0-36.0) g/dL RDW 18.7 H (11.5-14.5) % Plt Count 318 H (150-300) 10^3/uL MPV 8.1 (7.4-10.4) fL Neut % (Auto) 79.8 H (50.0-70.0) % Lymph % (Auto) 14.0 L (20.0-40.0) % Brooks % (Auto) 6.0 (2.0-8.0) % Eos % (Auto) 0.0 L (1.0-3.0) % Baso % (Auto) 0.2 (0.0-1.0) % Neut # 16.7 H (2.5-7.0) 10^3/uL Lymph # 2.9 (1.0-4.0) 10^3/uL Brooks # 1.3 H (0.1-0.8) 10^3/uL Eos # 0.0 L (0.1-0.3) 10^3/uL Baso # 0.0 (0.0-0.1) 10^3/uL Sodium 139 (136-145) mmol/L Potassium 4.0 (3.3-5.3) mmol/L Chloride 102 (98-115) mmol/L Carbon Dioxide 31.1 (21.0-32.0) mmol/L BUN 22 (6-25) mg/dL Creatinine 0.95 (0.51-1.17) mg/dL Est Cr Clr Drug Dosing 57.30 mL/min Estimated GFR (MDRD) > 60 mL/min Glucose 201 H (70-110) mg/dL POC Glucose 209 H (74-106) mg/dl Calcium 8.9 (8.7-10.3) mg/dL Med Orders - Current: Current Medications Acetaminophen (Tylenol) 650 mg PO Q4H PRN PRN Reason: Pain (Mild 1-3)/fever Last Admin: 11/15/16 06:32 Dose: 650 mg Albuterol/Ipratropium (Duoneb 3.0-0.5 Mg/3 Ml) 3 ml NEB Q6HRRT [facility] Last Admin: 11/15/16 05:59 Dose: 3 ml Aspirin (Aspirin) 81 mg PO DAILY [facility] Last Admin: 11/15/16 08:35 Dose: 81 mg Atorvastatin Calcium (Lipitor) 40 mg PO DAILY [facility] Last Admin: 11/15/16 08:35 Dose: 40 mg Atropine Sulfate (Atropine 0.1 Mg/Ml) 0 mg IVPUSH ASDIRECTED PRN PRN Reason: Heart Ceftriaxone Sodium (Rocephin) 1 gm IVPUSH Q24H [facility] Last Admin: 11/14/16 22:11 Dose: 1 gm Clopidogrel Bisulfate (Plavix) 75 mg PO DAILY [facility] Last Admin: 11/15/16 08:35 Dose: 75 mg Epinephrine HCl (Epinephrine 1:10,000) 1 mg IVPUSH ASDIRECTED PRN PRN Reason: Heart Glipizide (Glucotrol) 10 mg PO BIDMEALS [facility] Last Admin: 11/15/16 08:33 Dose: 10 mg Azithromycin 500 mg/ Sodium (Chloride) 250 mls @ 250 mls/hr IV Q24H [facility] Last Admin: 11/14/16 22:14 Dose: 250 mls/hr Insulin Aspart (Novolog) 0 unit SUBCUT WITHMEALSANDBED [facility] PRN Reason: Protocol Last Admin: 11/15/16 08:35 Dose: 6 units Insulin Detemir (Levemir) 34 unit SUBCUT BID [facility] Last Admin: 11/15/16 08:37 Dose: 34 units Levothyroxine Sodium (Synthroid) 88 mcg PO ACBREAKFAST [facility] Last Admin: 11/15/16 06:31 Dose: 88 mcg Lidocaine HCl (Xylocaine 2%) 0 mg IVPUSH ASDIRECTED PRN PRN Reason: Heart Metformin HCl (Glucophage) 1,000 mg PO BIDMEALS [facility] Last Admin: 11/15/16 08:32 Dose: 1,000 mg Nitroglycerin (Nitrostat) 0.4 mg SL ASDIRECTED PRN PRN Reason: chest tightness Propranolol HCl (Inderal) 20 mg PO DAILY [facility] Last Admin: 11/15/16 08:34 Dose: 20 mg Sitagliptin Phosphate (Januvia) 100 mg PO WITHBREAKFAST [facility] Last Admin: 11/15/16 08:34 Dose: 100 mg Sodium Chloride (Syrex Flush) 5 ml FLUSH Q8HR PRN PRN Reason: Keep Vein Open Last Admin: 11/13/16 14:41 Dose: 5 ml Discontinued Medications Acetaminophen (Tylenol Extra Strength) 1,000 mg PO ONETIME ONE Stop: 11/12/16 21:35 Last Admin: 11/12/16 21:42 Dose: 1,000 mg Albuterol/Ipratropium (Duoneb 3.0-0.5 Mg/3 Ml) 3 ml NEB ONETIME ONE Stop: 11/12/16 21:19 Last Admin: 11/12/16 21:39 Dose: 3 ml Albuterol/Ipratropium (Duoneb 3.0-0.5 Mg/3 Ml) Confirm Administered Dose 3 ml .ROUTE .STK-MED ONE Stop: 11/12/16 21:21 Last Admin: 11/12/16 21:39 Dose: Not Given Albuterol/Ipratropium (Duoneb 3.0-0.5 Mg/3 Ml) 3 ml NEB Q4H [facility] Last Admin: 11/13/16 06:24 Dose: 3 ml Aspirin (Halfprin) 81 mg PO DAILY [facility] Last Admin: 11/13/16 08:52 Dose: 81 mg Sodium Chloride (Normal Saline) 1,000 mls @ 999 mls/hr IV .BOLUS ONE Stop: 11/12/16 22:34 Last Admin: 11/12/16 21:42 Dose: 999 mls/hr Sodium Chloride (Normal Saline) Confirm Administered Dose 50 mls @ as directed .ROUTE .STK-MED ONE Stop: 11/14/16 22:16 Last Admin: 11/15/16 02:43 Dose: Not Given Ibuprofen (Motrin) 600 mg PO Q6H PRN PRN Reason: Pain (mild 1-3) Insulin Aspart (Novolog) 0 unit SUBCUT QIDACANDBED [facility] PRN Reason: Protocol Last Admin: 11/14/16 11:31 Dose: 12 units Insulin Aspart (Novolog) Confirm Administered Dose 300 unit .ROUTE .STK-MED ONE Stop: 11/13/16 08:37 Last Admin: 11/13/16 18:07 Dose: Not Given Insulin Aspart (Novolog) 12 unit SUBCUT NOW STA Stop: 11/13/16 17:48 Last Admin: 11/13/16 17:54 Dose: Not Given Levothyroxine Sodium (Synthroid) 88 mcg PO DAILY [facility] Methylprednisolone Sodium Succinate (Solu-Medrol) 125 mg IVPUSH ONETIME ONE Stop: 11/12/16 21:40 Last Admin: 11/12/16 21:43 Dose: 125 mg Methylprednisolone Sodium Succinate (Solu-Medrol) Confirm Administered Dose 125 mg .ROUTE .STK-MED ONE Stop: 11/12/16 21:42 Last Admin: 11/13/16 01:57 Dose: Not Given Methylprednisolone Sodium Succinate (Solu-Medrol) 80 mg IVPUSH Q8H [facility] Last Admin: 11/14/16 06:22 Dose: 80 mg Nitroglycerin (Nitrostat) 0.4 mg SL ASDIRECTED PRN PRN Reason: Heart Non-Formulary Medication (Insulin Aspart) 1 units SUBCUT ASDIRECTED PRN PRN Reason: high blood sugar Non-Formulary Medication (Nadolol [Corgard]) 20 mg PO DAILY [facility] Non-Formulary Medication (Sitagliptin [Januvia]) 100 mg PO DAILY [facility] Non-Formulary Medication (Glipizide [Glucotrol]) 10 mg PO BID [facility] Non-Formulary Medication (Metformin Hcl [Metformin Hcl]) 1,000 mg PO BID RG Sodium Chloride (Syrex Flush) 5 ml FLUSH Q8HR PRN PRN Reason: Keep Vein Open - Exam Quality Assessment: Denies: supplemental oxygen General: Reports: alert, oriented HEENT: Reports: Pupils equal, Pupils reactive, EOMI, Mucous membr. moist/pink Neck: Reports: supple Lungs: Reports: Clear to auscultation, Normal respiratory effort Cardiovascular: Reports: regular rate, regular rhythm Abdomen: Reports: bowel sounds present, soft, no tenderness, no distension Back Exam: Reports: normal inspection, full range of motion Extremities: Reports: no edema, normal pulses Skin: Reports: warm, dry, intact Neurological: Reports: no new focal deficit Psy/Mental Status: Reports: alert, normal affect, normal mood *Q Meaningful Use (DIS) - VTE *Q VTE Criteria *Q: - Stroke *Q Stroke Criteria *Q: - AMI *Q AMI Criteria *Q:
== END 2016-11-15 12:25 | disposition home or self-care (01) | DRG 192 ==
LOC: KA.ED 21:16 → KA.MS 22:34 → KA.ED 23:00 → KA.MS 23:15 → UNDOADMIN 23:15 → KA.MS 11-14 09:00 → UNDODISIN 11-15 12:25
PROVIDERS: ADMIT Physician Assistant Medical; ATTEND Physician Assistant Medical
DX: J44.1 Chronic obstructive pulmonary disease with (acute) exacerbation (principal); R09.02 Hypoxemia; D64.9 Anemia, unspecified; E11.9 Type 2 diabetes mellitus without complications; E11.65 Type 2 diabetes mellitus with hyperglycemia; Z79.4 Long term (current) use of insulin; D72.829 Elevated white blood cell count, unspecified; I10 Essential (primary) hypertension; F17.200 Nicotine dependence, unspecified, uncomplicated; K21.9 Gastro-esophageal reflux disease without esophagitis; M19.90 Unspecified osteoarthritis, unspecified site; F32.9 Major depressive disorder, single episode, unspecified; E03.9 Hypothyroidism, unspecified; Z86.19 Personal history of other infectious and parasitic diseases; Z79.82 Long term (current) use of aspirin; Z88.8 Allergy status to other drugs, medicaments and biological substances; Z91.041 Radiographic dye allergy status; Z79.899 Other long term (current) drug therapy; Z88.2 Allergy status to sulfonamides; Z91.030 Bee allergy status
CPT/HCPCS: 36415; 71020; 80053; 82550; 82553; 82728; 83540; 84466; 84484; 85025; 86850; 86900; 86901; 87040 ×2; 94640; 96361; 96374; 99285; A9270; J2930; J7030; 71250; 80048; 81001; 82962; 86480; 93005; J0456; J0696; J1815-GY; J7050

== ENCOUNTER 2018-10-26 09:54 | Emergency (ER) | payer MEDICARE, MEDICAID ==
[2018-10-26 10:09] VITALS: BP 109/68
--- NOTE | 2018-10-26 10:43 | CR ---
[id number] RAD/RAD Fingers Right EXAM: RIGHT THUMB 3 VIEWS INDICATION: CAUGHT IN [place] SAE. COMPARISON: June 07, 2011. DISCUSSION: Mild osteoarthritis of the first carpometacarpal, metacarpophalangeal and interphalangeal joints. No acute fracture, dislocation or other osseous abnormality is identified. IMPRESSION: 1. No acute findings. Rohit Solano MD 10/26/18 1042 Thank you for allowing us to participate in the care of your patient.
--- NOTE | 2018-10-26 11:00 | EDM.PDOC ---
ED HPI GENERAL MEDICAL PROBLEM - General Chief Complaint: Upper Extremity Injury/Pain Stated Complaint: SLAMMED THUMB IN TAILGATE Time Seen by Provider: 10/26/18 10:15 Source of Information: Reports: Patient History Limitations: Reports: No Limitations - History of Present Illness INITIAL COMMENTS - FREE TEXT/NARRATIVE: 53-year-old [id number] female presents emergency room this morning with an injury to her right thumb. Patient states that she was closing [place] back [place] when she caught her thumb in the door as it latched. She immediately pulled at the thumb and felt a pop. She now states that she has inability to flex at the IP joint of the right thumb. She notices bruising and swelling and tenderness at the distal thumb as well as at the IP joint. She's had a history of rupture of the FPL with a tendon transfer of the right thumb approximately 3 years ago by an orthopedic hand surgeon in [place]. She is seen recent orthopedic hand surgeon Dr. Maldonado about 3 weeks ago when she had a hypodermic diabetic needle accidentally break off in her hand. She had the needle removed. No other complaints are voiced. 10 point review of systems was reviewed and positives or pertinent in the patient's history. Onset Date: 10/25/18 Right Pain Score (Numeric/FACES): 8 - Related Data Allergies Allergy/AdvReac Type Severity Reaction Status Date / Time aspartame Allergy Hives Verified 10/26/18 10:10 Iodinated Contrast- Oral and Allergy Vomiting Verified 10/26/18 10:10 IV Dye [Iodinated Contrast Media - IV Dye] iodine Allergy Itching Verified 10/26/18 10:10 Sulfa (Sulfonamide Allergy Hives Verified 10/26/18 10:10 Antibiotics) venom-honey bee Allergy Airway Verified 10/26/18 10:10 [bee venom (honey bee)] Tightness Home Meds: Home Meds Ibuprofen [Motrin] 800 mg PO BID PRN 10/24/13 [History] Insulin Detemir [Levemir Flexpen] 25 units SUBCUT BID 10/24/13 [History] metFORMIN HCl [Metformin HCl] 1,000 mg PO BIDMEALS 10/24/13 [History] Albuterol [Ventolin HFA] 1 - 2 puff INH Q4H PRN 10/19/14 [History] Nitroglycerin 1 tab SL ASDIRECTED PRN 03/21/16 [History] traMADol [Ultram] 50 mg PO Q6HR PRN 03/21/16 [History] Aspirin 325 mg PO DAILY 11/13/16 [History] Cyclobenzaprine [Flexeril] 10 mg PO TID PRN 11/13/16 [History] atorvaSTATin [Lipitor] 40 mg PO DAILY 11/13/16 [History] Albuterol/Ipratropium [DuoNeb 3.0-0.5 MG/3 ML] 3 ml NEB Q6HRRT PRN 12/19/16 [ History] Triamcinolone Acetonide [Triamcinolone Acetonide 0.1% Crm] 15 gm TOP BID [History] Dapagliflozin Propanediol [Farxiga] 20 mg PO DAILY 02/06/17 [History] Levothyroxine [Synthroid] 100 mcg PO DAILY 12/26/17 [History] Nebulizer/Compressor [Comp-Air Nebulizer System] 1 each MC DAILY PRN 04/04/18 [ History] Liraglutide [Victoza] 1.8 units SUBCUT DAILY 10/26/18 [History] Past Medical History HEENT History: Reports: Impaired Vision Other HEENT History: Ear infections Cardiovascular History: Reports: CAD, Hypertension, [place], SOB on Exertion Other Cardiovascular History: lipid rich plaque. 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 Respiratory History: Reports: Bronchitis, Recurrent Other Respiratory History: smoker x 36 years, 0.5 ppd Gastrointestinal History: Reports: Cholelithiasis, Cirrhosis, GERD Other Gastrointestinal History: esophageal varices - grade I Genitourinary History: Reports: Pyelonephritis, UTI, Recurrent [employer] History: Reports: Musculoskeletal History: Reports: Arthritis, Back Pain, Chronic, Neck Pain, Chronic Other Musculoskeletal History: Herniated Disc x4 Neurological History: Reports: Migraines Psychiatric History: Reports: Depression, Panic Attack Endocrine/Metabolic History: Reports: Diabetes, Type II, Hypothyroidism, Obesity /BMI 30+ Other Endocrine/Metabolic History: hypothyroidism Hematologic History: Reports: Anemia, Iron Deficiency Other Hematologic History: elevated liver values Oncologic (Cancer) History: Reports: None, Other (See Below) Other Oncologic History: precancerous cells in uterus, back Dermatologic History: Reports: Other (See Below) Other Dermatologic History: pre cancer moles removed in 1995 - Infectious Disease History Infectious Disease History: Reports: Hepatitis C - Past Surgical History Cardiovascular Surgical History: Reports: Valve Replacement GI Surgical History: Reports: Cholecystectomy, Colonoscopy, EGD Endocrine Surgical History: Reports: None Neurological Surgical History: Reports: Laminectomy Other Neurological Surgeries/Procedures: L LE weakness and numbness since laminectomy Other Musculoskeletal Surgeries/Procedures:: Laminectomy 2000 Oncologic Surgical History: Reports: None Dermatological Surgical History: Reports: None Social & Family History - Family History Family Medical History: Noncontributory - Tobacco Use Smoking Status *Q: Former Smoker Used Tobacco, but Quit: No - Caffeine Use Caffeine Use: Reports: Coffee, Soda, Tea Other Caffeine Use: sprite - Recreational Drug Use Recreational Drug Use: No - Living Situation & Occupation Living situation: Reports: with Significant Other Occupation: Disabled Review of Systems - Review of Systems Review Of Systems: ROS reveals no pertinent complaints other than HPI. ED EXAM, GENERAL - Physical Exam Exam: See Below Exam Limited By: No Limitations General Appearance: Alert, WD/WN, No Apparent Distress Throat/Mouth: Normal Voice, No Airway Compromise Head: Atraumatic, Normocephalic Extremities: Other (Muscular skeletal examination right upper extremity shows normal index long ring and fifth finger range of motion. She has swelling and ecchymosis of the right thumb distally. She has no nailbed tenderness she is tender to palpation on the palmar surface of the IP joint. She has no active range of motion at the IP joint with flexion. No tenderness of the base of the thumb. Wrist forearm elbow shoulder motion are within normal limits. She is prior healed incisions at the base of the right thumb extending into the forearm consistent with prior tendon transfer.) Neurological: Alert, No Motor/Sensory Deficits Skin Exam: Warm, Dry, Intact, Normal Color, Ecchymosis (Right thumb) Course - Vital Signs Last Recorded V/S: Last Vital Signs Temp 97.8 F 10/26/18 10:04 Pulse 86 10/26/18 10:04 Resp 18 10/26/18 10:04 BP 109/68 10/26/18 10:04 Pulse Ox 96 10/26/18 10:04 - Re-Assessments/Exams Free Text/Narrative Re-Assessment/Exam: 10/26/18 11:28 Thumb spica splint was applied to the right thumb Departure - Departure Time of Disposition: 11:00 Disposition: Home, Self-Care 01 Condition: Good Clinical Impression: Sprain of right thumb Qualifiers: Encounter type: initial encounter Sprain of finger site: interphalangeal joint Qualified Code(s): S63.621A - Sprain of interphalangeal joint of right thumb, initial encounter - Discharge Information Instructions: Thumb Sprain Referrals: Sofie Pyle MD [Primary Care Provider] - Forms: ED Department Discharge Additional Instructions: 1. Thumb spica splint until follow-up with Orthopedics in [facility] 2. Elevation 3. Ibuprofen 800 mg 3 times a day for pain. 4. Call [facility] Sunday to schedule appointment with a hand surgeon. 5. Discuss with patient concern for possible recurrent rupture FPL tendon right thumb - Assessment/Plan Assessment:: 1. Crush injury to the right thumb with possible FPL rupture. 2. History of FPL rupture with tendon transfer right thumb. Plan: 1. Thumb spica splint until follow-up with Orthopedics in [facility] 2. Elevation 3. Ibuprofen 800 mg 3 times a day for pain. 4. Call [facility] Sunday to schedule appointment with a hand surgeon.
== END 2018-10-26 11:00 | disposition home or self-care (01) ==
LOC: KA.ED 09:54
DX: S63.621A Sprain of interphalangeal joint of right thumb, initial encounter (principal); I10 Essential (primary) hypertension; I25.2 Old myocardial infarction; E11.9 Type 2 diabetes mellitus without complications; E66.9 Obesity, unspecified; Z87.891 Personal history of nicotine dependence; Z88.8 Allergy status to other drugs, medicaments and biological substances; Z91.041 Radiographic dye allergy status; Z88.2 Allergy status to sulfonamides; Z91.030 Bee allergy status; Z79.4 Long term (current) use of insulin; Z79.899 Other long term (current) drug therapy; W23.0XXA Caught, crushed, jammed, or pinched between moving objects, initial encounter
CPT/HCPCS: 73140-F5; 99283

== ENCOUNTER 2019-10-19 13:44 | Emergency (ER) | payer MEDICARE, MEDICAID ==
[2019-10-19 14:13] VITALS: BP 113/70; PULSE 76
--- NOTE | 2019-10-19 14:40 | EDM.PDOC ---
ED HPI GENERAL MEDICAL PROBLEM - General Chief Complaint: Lower Extremity Injury/Pain Stated Complaint: S/P FALL, RT LEG INJURY, LT HIP INJURY Time Seen by Provider: 10/19/19 14:26 Source of Information: Reports: Patient History Limitations: Reports: No Limitations - History of Present Illness INITIAL COMMENTS - FREE TEXT/NARRATIVE: Patient is a 54-year-old female who presents to the emergency department via private vehicle with a complaint of lower extremity pain. Patient states that she was washing her vehicle at a local car wash and her right leg fell through the drainage grate. Patient sustained abrasions to medial and lateral aspects of right lower extremity. Patient states that she also struck her left knee on the ground. Patient denies head injury or loss of consciousness. Patient did undergo lumbar surgery 3 weeks ago. However, no complaint of back pain following incident. Onset: Today Duration: Minutes: Location: Reports: Lower Extremity, Left, Lower Extremity, Right Quality: Reports: Ache Severity: Mild Improves with: Reports: None Worsens with: Reports: None Context: Reports: Trauma Associated Symptoms: Reports: No Other Symptoms Right Lower Leg Pain Score (Numeric/FACES): 6 - Related Data Allergies Allergy/AdvReac Type Severity Reaction Status Date / Time aspartame Allergy Hives Verified 10/19/19 14:13 Iodinated Contrast Media Allergy Vomiting Verified 10/19/19 14:13 [Iodinated Contrast Media - IV Dye] iodine Allergy Itching Verified 10/19/19 14:13 Sulfa (Sulfonamide Allergy Hives Verified 10/19/19 14:13 Antibiotics) venom-honey bee Allergy Airway Verified 10/19/19 14:13 [bee venom (honey bee)] Tightness Home Meds: Home Meds Ibuprofen [Motrin] 800 mg PO BID PRN 10/24/13 [History] Insulin Detemir [Levemir Flexpen] 25 units SUBCUT BID 10/24/13 [History] metFORMIN HCl [Metformin HCl] 1,000 mg PO BIDMEALS 10/24/13 [History] Albuterol [Ventolin HFA] 1 - 2 puff INH Q4H PRN 10/19/14 [History] Nitroglycerin 1 tab SL ASDIRECTED PRN 03/21/16 [History] traMADol [Ultram] 50 mg PO Q6HR PRN 03/21/16 [History] Aspirin 325 mg PO DAILY 11/13/16 [History] Cyclobenzaprine [Flexeril] 10 mg PO TID PRN 11/13/16 [History] atorvaSTATin [Lipitor] 40 mg PO DAILY 11/13/16 [History] Albuterol/Ipratropium [DuoNeb 3.0-0.5 MG/3 ML] 3 ml NEB Q6HRRT PRN 12/19/16 [ History] Triamcinolone Acetonide [Triamcinolone Acetonide 0.1% Crm] 15 gm TOP BID [History] Dapagliflozin Propanediol [Farxiga] 20 mg PO DAILY 02/06/17 [History] Levothyroxine [Synthroid] 100 mcg PO DAILY 12/26/17 [History] Nebulizer/Compressor [Comp-Air Nebulizer System] 1 each MC DAILY PRN 04/04/18 [ History] Liraglutide [Victoza] 1.8 units SUBCUT DAILY 10/26/18 [History] Past Medical History HEENT History: Reports: Impaired Vision Other HEENT History: Ear infections Cardiovascular History: Reports: CAD, Hypertension, MS, SOB on Exertion Other Cardiovascular History: lipid rich plaque. 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 Respiratory History: Reports: Bronchitis, Recurrent Other Respiratory History: smoker x 36 years, 0.5 ppd Gastrointestinal History: Reports: Cholelithiasis, Cirrhosis, GERD Other Gastrointestinal History: esophageal varices - grade I Genitourinary History: Reports: Pyelonephritis, UTI, Recurrent [employer] REP History: Reports: Musculoskeletal History: Reports: Arthritis, Back Pain, Chronic, Neck Pain, Chronic Other Musculoskeletal History: Herniated Disc x4 Neurological History: Reports: Migraines Psychiatric History: Reports: Depression, Panic Attack Endocrine/Metabolic History: Reports: Diabetes, Type II, Hypothyroidism, Obesity /BMI 30+ Other Endocrine/Metabolic History: hypothyroidism Hematologic History: Reports: Anemia, Iron Deficiency Other Hematologic History: elevated liver values Oncologic (Cancer) History: Reports: None, Other (See Below) Other Oncologic History: precancerous cells in uterus, back Dermatologic History: Reports: Other (See Below) Other Dermatologic History: pre cancer moles removed in 1995 - Infectious Disease History Infectious Disease History: Reports: Hepatitis C - Past Surgical History Cardiovascular Surgical History: Reports: Valve Replacement GI Surgical History: Reports: Cholecystectomy, Colonoscopy, EGD Endocrine Surgical History: Reports: None Neurological Surgical History: Reports: Laminectomy Other Neurological Surgeries/Procedures: L LE weakness and numbness since laminectomy Other Musculoskeletal Surgeries/Procedures:: Laminectomy 2000 Oncologic Surgical History: Reports: None Dermatological Surgical History: Reports: None Social & Family History - Family History Family Medical History: Noncontributory - Caffeine Use Caffeine Use: Reports: Coffee, Soda, Tea Other Caffeine Use: sprite - Living Situation & Occupation Living situation: Reports: with Significant Other Occupation: Disabled Review of Systems - Review of Systems Review Of Systems: Comprehensive ROS is negative, except as noted in HPI. Constitutional: Reports: No Symptoms Eyes: Reports: No Symptoms Ears: Reports: No Symptoms Nose: Reports: No Symptoms Mouth/Throat: Reports: No Symptoms Respiratory: Reports: No Symptoms Cardiovascular: Reports: No Symptoms GI/Abdominal: Reports: No Symptoms Genitourinary: Reports: No Symptoms Musculoskeletal: Reports: Leg Pain (Right lateral and medial tib-fib, left knee) Skin: Reports: No Symptoms, Wound (Abrasions to right tib-fib lateral and medial aspects, small abrasion to left knee. No ecchymosis, crepitus, deformity , or edema noted to Knees or ankles.) Neurological: Reports: No Symptoms ED EXAM, GENERAL - Physical Exam Exam: See Below Exam Limited By: No Limitations General Appearance: Alert, WD/WN Throat/Mouth: Normal Inspection, Normal Oropharynx, No Airway Compromise Head: Atraumatic, Normocephalic Neck: Normal Inspection, Supple, Non-Tender, Full Range of Motion Respiratory/Chest: No Respiratory Distress Back Exam: Normal Inspection, Full Range of Motion. No: Paraspinal Tenderness, Vertebral Tenderness Extremities: No Pedal Edema, Normal Capillary Refill, Leg Pain (Right tib-fib with abrasions to mid shaft medial and lateral aspects. Small abrasion to left anterior inferior knee. No ecchymosis, edema, crepitus, deformity noted.), Other (Minimal tenderness to Left hip without limited range of motion, ecchymosis, abrasion, crepitus, edema, or deformity.) Neurological: Alert, Oriented, Normal Cognition Psychiatric: Normal Affect, Normal Mood Skin Exam: Warm, Dry, Normal Color, No Rash Course - Vital Signs Last Recorded V/S: Last Vital Signs Temp 98.6 F 10/19/19 14:09 Pulse 76 10/19/19 14:09 Resp 16 10/19/19 14:09 BP 113/70 10/19/19 14:09 Pulse Ox 97 10/19/19 14:09 - Orders/Labs/Meds Orders: Active Orders 24 hr Category Date Time Status Knee 3V Lt [CR] Stat Exams 10/19/19 14:26 Ordered Tibia Fibula Rt [CR] Stat Exams 10/19/19 14:26 Ordered - Radiology Interpretation Free Text/Narrative:: X-ray of right tib-fib and left knee shows no acute fracture, dislocation, or foreign body. - Re-Assessments/Exams Free Text/Narrative Re-Assessment/Exam: 10/19/19 15:20 Patient afebrile, vital signs stable, wounds cleaned thoroughly and triple antibiotic with dressing applied. Patient will follow-up with PCP Departure - Departure Time of Disposition: 15:20 Disposition: Home, Self-Care 01 Condition: Good Clinical Impression: Multiple abrasions - Discharge Information Instructions: Abrasion, [id number] Referrals: Sofie Pyle MD [Primary Care Provider] - Additional Instructions: Follow-up with PCP in 2-3 days. Return to emergency department sooner if symptoms continue or worsen. Keep area clean. Sepsis Event Note - Evaluation Sepsis Screening Result: No Definite Risk - Focused Exam Vital Signs: Vital Signs Temp Pulse Resp BP Pulse Ox 10/19/19 14:09 98.6 F 76 16 113/70 97 Date Exam was Performed: 10/19/19 Time Exam was Performed: 14:35 - My Orders Last 24 Hours: My Active Orders 10/19/19 14:26 Knee 3V Lt [CR] Stat Tibia Fibula Rt [CR] Stat - Assessment/Plan Last 24 Hours: My Active Orders 10/19/19 14:26 Knee 3V Lt [CR] Stat Tibia Fibula Rt [CR] Stat Assessment:: Abrasions Plan: Follow-up with PCP
--- NOTE | 2019-10-19 15:15 | CR ---
[id number] RAD/RAD Tibia Fibula Right EXAM: RAD Tibia Fibula Right CLINICAL DATA: TRAUMA COMPARISON: CORRELATION IS MADE WITH THE EXAM OF 2014 FINDINGS: No fracture or dislocation is seen. There is no radiopaque foreign body in the soft tissues. There is no air in the soft tissues. There is no cortical thickening or periosteal reaction either. IMPRESSION: NEGATIVE PLAIN FILM EXAM. Enrique Felder MD 10/19/19 [id number] Thank you for allowing us to participate in the care of your patient.
--- NOTE | 2019-10-19 15:16 | CR ---
[id number] RAD/RAD Knee Left 3V EXAM: RAD Knee Left 3V CLINICAL DATA: TRAUMA COMPARISON: NO PREVIOUS SIMILAR EXAM IS AVAILABLE. FINDINGS: No fracture or dislocation is seen. There is no radiopaque foreign body in the soft tissues. There is no air in the soft tissues. There is no cortical thickening or periosteal reaction either. IMPRESSION: NEGATIVE PLAIN FILM EXAM. Enrique Felder MD 10/19/19 [id number] Thank you for allowing us to participate in the care of your patient.
[2019-10-19] MEDS ORDERED: Bacitracin/Neomycin/Polymyxin B Oint 0.9 GM U/D Packet TOP ONE (15:20)
== END 2019-10-19 15:30 | disposition home or self-care (01) ==
LOC: KA.ED 13:44
DX: S80.212A Abrasion, left knee, initial encounter (principal); S80.811A Abrasion, right lower leg, initial encounter; I10 Essential (primary) hypertension; I25.10 Atherosclerotic heart disease of native coronary artery without angina pectoris; I25.2 Old myocardial infarction; K21.9 Gastro-esophageal reflux disease without esophagitis; E11.9 Type 2 diabetes mellitus without complications; E66.9 Obesity, unspecified; E03.9 Hypothyroidism, unspecified; Z88.2 Allergy status to sulfonamides; Z91.041 Radiographic dye allergy status; Z91.030 Bee allergy status; Z79.4 Long term (current) use of insulin; Z79.899 Other long term (current) drug therapy; Z79.82 Long term (current) use of aspirin; W19.XXXA Unspecified fall, initial encounter
CPT/HCPCS: 73562-LT; 73590-RT; 99283; 99283-25

== ENCOUNTER 2022-08-23 14:20 | Emergency (ER) | payer MEDICARE, MEDICAID ==
[2022-08-23 15:05] VITALS: BP 104/67; PULSE 87
[2022-08-23 15:32] LABS: RESPIRATORY SYNCYTIAL VIR NAA NEGATIVE (NEGATIVE)
[2022-08-23 15:33] LABS: CORONAVIRUS COVID-19 NAA NEGATIVE (NEGATIVE)
== END 2022-08-23 15:45 | disposition home or self-care (01) ==
LOC: KA.ED 14:20
DX: J10.1 Influenza due to other identified influenza virus with other respiratory manifestations (principal); I25.10 Atherosclerotic heart disease of native coronary artery without angina pectoris; I10 Essential (primary) hypertension; I25.2 Old myocardial infarction; K21.9 Gastro-esophageal reflux disease without esophagitis; M19.90 Unspecified osteoarthritis, unspecified site; E11.9 Type 2 diabetes mellitus without complications; E03.9 Hypothyroidism, unspecified; D64.9 Anemia, unspecified; E66.9 Obesity, unspecified; Z68.37 Body mass index [BMI] 37.0-37.9, adult; Z88.8 Allergy status to other drugs, medicaments and biological substances; Z91.041 Radiographic dye allergy status; Z88.2 Allergy status to sulfonamides; Z91.030 Bee allergy status; Z79.82 Long term (current) use of aspirin; Z79.4 Long term (current) use of insulin; Z79.899 Other long term (current) drug therapy; Z20.822 Contact with and (suspected) exposure to COVID-19
CPT/HCPCS: 0241U; 71046; 99283; 99284

== ENCOUNTER 2022-11-07 08:09 | Day surgery (SDC) | payer MEDICARE, MEDICAID ==
[~2022-11-07 08:09] MED LIST: Sodium Chloride 0.9% 10 ML Syringe FLUSH PRN
[2022-11-07] MEDS: Sodium Chloride 0.9% 1,000 ML IV SCH (08:35)
[2022-11-07] MEDS ORDERED: Lidocaine 0.5% 50 ML SDV ONE (08:54)
[2022-11-07] MEDS ORDERED: Midazolam 1 MG/ML 2 ML SDV ONE (08:54)
[2022-11-07] MEDS ORDERED: Propofol 200 MG/20 ML SDV ONE (08:54)
[2022-11-07] MEDS ORDERED: fentaNYL 100 MCG/2 ML SDV ONE (08:54)
[2022-11-07] MEDS ORDERED: Bupivacaine 0.5% 30 ML SDV ONE (09:06)
[2022-11-07] MEDS ORDERED: Bacitracin/Neomycin/Polymyxin B Oint 0.9 GM U/D Packet ONE (09:06)
[2022-11-07] MEDS: Bupivacaine 0.5% 30 ML SDV INFILT ONE (09:46)
[2022-11-07 11:16] VITALS: BP 114/85; PULSE 67
== END 2022-11-07 11:30 | disposition home or self-care (01) ==
LOC: KA.SDS 08:09
PROVIDERS: ATTEND Surgery
DX: M67.432 Ganglion, left wrist (principal); I25.10 Atherosclerotic heart disease of native coronary artery without angina pectoris; E03.9 Hypothyroidism, unspecified; E11.9 Type 2 diabetes mellitus without complications; F32.A Depression, unspecified; K21.9 Gastro-esophageal reflux disease without esophagitis; M10.9 Gout, unspecified; I10 Essential (primary) hypertension; G25.81 Restless legs syndrome; G47.30 Sleep apnea, unspecified; F17.200 Nicotine dependence, unspecified, uncomplicated; Z88.2 Allergy status to sulfonamides; Z88.8 Allergy status to other drugs, medicaments and biological substances; Z91.030 Bee allergy status; Z91.048 Other nonmedicinal substance allergy status; Z79.890 Hormone replacement therapy; Z79.4 Long term (current) use of insulin; Z79.899 Other long term (current) drug therapy
CPT/HCPCS: 82947; J2250; J2704; J3010; J3490; J7030

== ENCOUNTER 2024-11-30 14:33 | Emergency (ER) | payer OTHER ==
[2024-11-30 15:13] LABS: APPEARANCE,URINE CLEAR (CLEAR); BILIRUBIN,URINE NEGATIVE (NEGATIVE); COLOR,URINE YELLOW (YELLOW); GLUCOSE,URINE >=1000 mg/dL (NEGATIVE); KETONES,URINE NEGATIVE (NEGATIVE); LEUKOCYTE ESTERASE,URINE NEGATIVE (NEGATIVE); NITRITE,URINE NEGATIVE (NEGATIVE); OCCULT BLOOD,URINE NEGATIVE (NEGATIVE); PROTEIN,URINE NEGATIVE (NEGATIVE)
[2024-11-30] MEDS: Ketorolac 30 MG/ML SDV IM ONE (15:42)
[2024-11-30 16:18] VITALS: BP 136/62; PULSE 62
== END 2024-11-30 16:00 | disposition home or self-care (01) ==
LOC: KA.ED 14:33
DX: M54.50 Low back pain, unspecified (principal); G89.29 Other chronic pain; I10 Essential (primary) hypertension; I25.10 Atherosclerotic heart disease of native coronary artery without angina pectoris; I25.2 Old myocardial infarction; K21.9 Gastro-esophageal reflux disease without esophagitis; M19.90 Unspecified osteoarthritis, unspecified site; E11.9 Type 2 diabetes mellitus without complications; E03.9 Hypothyroidism, unspecified; E66.9 Obesity, unspecified; Z68.35 Body mass index [BMI] 35.0-35.9, adult; Z95.2 Presence of prosthetic heart valve; Z90.49 Acquired absence of other specified parts of digestive tract; Z90.710 Acquired absence of both cervix and uterus; Z88.2 Allergy status to sulfonamides; Z88.8 Allergy status to other drugs, medicaments and biological substances; Z91.041 Radiographic dye allergy status; Z91.048 Other nonmedicinal substance allergy status; Z91.030 Bee allergy status; Z79.4 Long term (current) use of insulin; Z79.51 Long term (current) use of inhaled steroids; Z79.84 Long term (current) use of oral hypoglycemic drugs; Z79.82 Long term (current) use of aspirin; Z79.890 Hormone replacement therapy; Z79.899 Other long term (current) drug therapy
CPT/HCPCS: 81003; 82947; 96372; 99284; J1885

== ENCOUNTER 2025-07-31 14:59 | Emergency (ER) | payer OTHER ==
[2025-07-31] MEDS: Sodium Chloride 0.9% 10 ML Syringe FLUSH PRN (15:15)
[2025-07-31 16:08] LABS: APPEARANCE,URINE CLEAR (CLEAR); GLUCOSE,URINE NEGATIVE (NEGATIVE); OCCULT BLOOD,URINE NEGATIVE (NEGATIVE)
[2025-07-31] MEDS: diphenhydrAMINE 50 MG/ML SDV IVPUSH ONE (17:15)
[2025-08-01 17:41] VITALS: BP 107/48; PULSE 61
== END 2025-07-31 17:30 | disposition home or self-care (01) ==
LOC: KA.ED 14:59
DX: E11.43 Type 2 diabetes mellitus with diabetic autonomic (poly)neuropathy (principal); K31.84 Gastroparesis; I25.10 Atherosclerotic heart disease of native coronary artery without angina pectoris; I10 Essential (primary) hypertension; I25.2 Old myocardial infarction; K21.9 Gastro-esophageal reflux disease without esophagitis; E11.9 Type 2 diabetes mellitus without complications; E03.9 Hypothyroidism, unspecified; Z91.041 Radiographic dye allergy status; Z88.2 Allergy status to sulfonamides; Z88.8 Allergy status to other drugs, medicaments and biological substances; Z91.030 Bee allergy status; Z79.899 Other long term (current) drug therapy; Z79.890 Hormone replacement therapy; Z79.4 Long term (current) use of insulin; Z79.84 Long term (current) use of oral hypoglycemic drugs; Z79.82 Long term (current) use of aspirin
CPT/HCPCS: 81003; 82947; 96361; 96374; 96375; 99284; 99284-25; J1200; J1610; J2765; S5010